=== PATIENT | male | born 1955 | race Caucasian/White ===

== ENCOUNTER → 2016-06-07 | Outpatient (REF) | payer BC ==
[~2016-06-07] MED LIST: /METO25TAB PO; ASPI81TA85 PO; BACIOIN20 TOP; BACITAB PO; BACT800T5 PO; CAPOTEN PO; CAPT125TA PO; CEPH500C PO; CLOP75TA2 PO; CRES5TAB PO; FERR325T PO; FERR325T3 PO; FURO40TA2 PO; GLIP5TAB2 PO; GLIP5TAB8 PO; KCL IV; KEFL500C7 PO; LASI40TA PO; LEVA500T PO; LEVO500T PO; LOPR1TAB6 PO; METO-346 PO; MICR10CA PO; MULT1TAB8 PO; MULTCAP PO; NITR4TASL SL; PERCOCET PO; PLAV75TA38 PO; POTA20TA PO; VITA-130 PO; VITA100037 PO; VITA500C24 PO; ZINC100T4 PO; ZYVO100T PO; crestor PO
[2016-06-07 12:21] LABS: ALBUMIN 3.8 GM/DL (3.2-5.2); ALBUMIN/GLOBULIN RATIO 1.36 (1.00-1.93); ALKALINE PHOSPHATASE 100 U/L (45-117); ALT/SGPT 26 U/L (12-78); ANION GAP 8 MEQ/L (8-16); AST/SGOT 19 U/L (15-37); BILIRUBIN,TOTAL 0.5 MG/DL (0.2-1.0); BLOOD UREA NITROGEN 30 MG/DL (7-18); CALCIUM LEVEL 8.7 MG/DL (8.8-10.2); CARBON DIOXIDE LEVEL 26 MEQ/L (21-32); CHLORIDE LEVEL 108 MEQ/L (98-107); CHOLESTEROL LEVEL 111 MG/DL (<200); CREATININE FOR GFR 1.14 MG/DL (0.70-1.30); GLOMERULAR FILTRATION RATE > 60.0 (>49); GLUCOSE, FASTING 72 MG/DL (80-110); POTASSIUM SERUM 4.3 MEQ/L (3.5-5.1); SODIUM LEVEL 142 MEQ/L (136-145); TOTAL PROTEIN 6.6 GM/DL (6.4-8.2); TRIGLYCERIDES LEVEL 132 MG/DL (<150)
== END ==
LOC: M SFHCPLAZ 08:27
PROVIDERS: ATTEND Family Medicine
DX: E11.9 Type 2 diabetes mellitus without complications (principal); E78.5 Hyperlipidemia, unspecified; I10 Essential (primary) hypertension

== ENCOUNTER 2016-06-24 21:24 | Emergency (ER) | payer OTHER, BC ==
[~2016-06-24] VITALS: Ht 172.7 cm; Wt 95.3 kg
[2016-06-24 21:25] VITALS: BP 161/82
[2016-06-24] MEDS ORDERED: METF500T PO (21:36)
== END 2016-06-24 23:19 | disposition home or self-care (01) ==
LOC: M ED 22:51
DX: S61.300A Unspecified open wound of right index finger with damage to nail, initial encounter (principal); W23.1XXA Caught, crushed, jammed, or pinched between stationary objects, initial encounter; Y92.89 Other specified places as the place of occurrence of the external cause; Y93.89 Activity, other specified; Y99.0 Civilian activity done for income or pay

== ENCOUNTER → 2016-09-13 | Outpatient (REF) | payer BC, OTHER ==
[~2016-09-13] MED LIST changes: +FERR1TAB8 PO; -FERR325T PO; +KEFL500C17 PO; -KEFL500C7 PO; +LEVA1TAB2 PO; -LEVA500T PO; +METF500T13 PO; +PLAV1TAB2 PO; -PLAV75TA38 PO; -VITA-130 PO; -VITA100037 PO; +VITA100067 PO; +VITA500T PO
== END ==
LOC: M LABDRAW1 11:49
PROVIDERS: ATTEND Student in an Organized Health Care Education/Training Program
DX: E11.9 Type 2 diabetes mellitus without complications (principal)

== ENCOUNTER → 2017-02-08 | Outpatient (REF) | payer BC ==
[2017-02-08 12:37] LABS: MALB URINE SIEMENS 26.1 MG/L; MAU/CREAT RATIO 19.3 MCG/MG (0.0-30.0)
[2017-02-08 12:52] LABS: ESTIMATED AVERAGE GLUCOSE 146 MG/DL (60-110); HEMOGLOBIN A1c 6.7 %
== END ==
LOC: M SFHCPLAZ 09:20
DX: E11.8 Type 2 diabetes mellitus with unspecified complications (principal)
CPT/HCPCS: 83036

== ENCOUNTER → 2017-10-27 | Outpatient (REF) | payer BC ==
[2017-10-27 16:01] LABS: BASO % 0.3 % (0.0-1.0); EOS # 0.1 10^3/uL (0.0-0.50); EOS % 2.1 % (0.0-3.0); HEMATOCRIT 36.4 % (42.0-52.0); IMMATURE GRANULOCYTE % 0.3 % (0-3.0); LYMPH # 0.8 10^3/uL (1.5-4.5); LYMPH % 13.7 % (24.0-44.0); MEAN CORPUSCULAR HEMOGLOBIN 31.5 pg (27.0-33.0); MEAN CORPUSCULAR VOLUME 95.5 fl (80.0-96.0); MONO # 0.3 10^3/uL (0.0-0.8); MONO % 5.6 % (0.0-5.0); NEUTROPHILS # 4.5 10^3/uL (1.8-7.7); PLATELET COUNT, AUTOMATED 164 10^3/uL (150-450); RED BLOOD COUNT 3.81 10^6/uL (4.30-6.10); RED CELL DISTRIBUTION WIDTH 12.9 % (11.5-14.5); WHITE BLOOD COUNT 5.8 10^3/uL (4.0-10.0)
[2017-10-27 16:26] LABS: ALBUMIN 3.8 GM/DL (3.2-5.2); ALBUMIN/GLOBULIN RATIO 1.41 (1.00-1.93); ALKALINE PHOSPHATASE 71 U/L (45-117); ALT/SGPT 27 U/L (12-78); ANION GAP 7 MEQ/L (8-16); AST/SGOT 19 U/L (7-37); BILIRUBIN,TOTAL 0.4 MG/DL (0.2-1.0); BLOOD UREA NITROGEN 33 MG/DL (7-18); CALCIUM LEVEL 8.5 MG/DL (8.8-10.2); CARBON DIOXIDE LEVEL 27 MEQ/L (21-32); CHLORIDE LEVEL 108 MEQ/L (98-107); CHOLESTEROL LEVEL 118 MG/DL (<200); CHOLESTEROL RISK RATIO 2.744 (<5); CREATININE FOR GFR 1.08 MG/DL (0.70-1.30); GLOMERULAR FILTRATION RATE > 60.0 (>49); GLUCOSE, FASTING 156 MG/DL (70-100); HDL CHOLESTEROL 43 MG/DL (>40); IRON (FE) 51 UG/DL (65-175); LDL CHOLESTEROL 59 MG/DL (<100); NON-HDL-C 75 MG/DL; POTASSIUM SERUM 4.9 MEQ/L (3.5-5.1); SODIUM LEVEL 142 MEQ/L (136-145); TOTAL PROTEIN 6.5 GM/DL (6.4-8.2); TRIGLYCERIDES LEVEL 81 MG/DL (<150)
[2017-10-27 16:31] LABS: ESTIMATED AVERAGE GLUCOSE 126 MG/DL (60-110)
== END ==
LOC: M LABDRAW1 10:43
DX: D64.9 Anemia, unspecified (principal); I10 Essential (primary) hypertension; D58.8 Other specified hereditary hemolytic anemias; E11.8 Type 2 diabetes mellitus with unspecified complications; E78.5 Hyperlipidemia, unspecified

== ENCOUNTER → 2018-05-11 | Outpatient (REF) | payer BC ==
[~2018-05-11] MED LIST changes: -/METO25TAB PO; +CAPT1TAB19 PO; +KLOR20TA42 PO; -LASI40TA PO; +LASI40TA9 PO; +METO1TAB87 PO; -ZYVO100T PO; +ZYVO1TAB PO
[2018-05-11 13:14] LABS: BASO # 0.1 10^3/uL (0.0-0.2); BASO % 1.2 % (0.0-1.0); EOS # 0.2 10^3/uL (0.0-0.50); EOS % 3.5 % (0.0-3.0); HEMATOCRIT 39.6 % (42.0-52.0); HEMOGLOBIN 12.8 g/dl (13.5-17.5); LYMPH # 0.9 10^3/uL (1.5-4.5); LYMPH % 15.8 % (24.0-44.0); MEAN CORPUSCULAR HEMOGLOBIN 31.1 pg (27.0-33.0); MEAN CORPUSCULAR HGB CONC 32.3 g/dl (32.0-36.5); MEAN CORPUSCULAR VOLUME 96.4 fl (80.0-96.0); MONO # 0.5 10^3/uL (0.0-0.8); MONO % 7.6 % (0.0-5.0); NEUTROPHILS # 4.3 10^3/uL (1.8-7.7); NEUTROPHILS % 71.7 % (36.0-66.0); PLATELET COUNT, AUTOMATED 171 10^3/uL (150-450); RED BLOOD COUNT 4.11 10^6/uL (4.30-6.10)
[2018-05-11 13:19] LABS: BLOOD UREA NITROGEN 40 MG/DL (7-18); CALCIUM LEVEL 8.5 MG/DL (8.8-10.2); CARBON DIOXIDE LEVEL 26 MEQ/L (21-32); CHLORIDE LEVEL 114 MEQ/L (98-107); CHOLESTEROL LEVEL 116 MG/DL (<200); CHOLESTEROL RISK RATIO 3.135 (<5); CREATININE FOR GFR 1.06 MG/DL (0.70-1.30); GLOMERULAR FILTRATION RATE > 60.0 (>49); GLUCOSE, FASTING 107 MG/DL (70-100); HDL CHOLESTEROL 37 MG/DL (>40); IRON (FE) 54 UG/DL (65-175); LDL CHOLESTEROL 54 MG/DL (<100); NON-HDL-C 79 MG/DL; POTASSIUM SERUM 4.9 MEQ/L (3.5-5.1); SODIUM LEVEL 145 MEQ/L (136-145); TRIGLYCERIDES LEVEL 126 MG/DL (<150)
[2018-05-11 13:45] LABS: HEMOGLOBIN A1c 6.1 %
[2018-05-11 13:57] LABS: MALB URINE SIEMENS 42.3 MG/L; MAU/CREAT RATIO 23.8 MCG/MG (0.0-30.0)
== END ==
LOC: M LABDRAW1 12:39
PROVIDERS: ATTEND Student in an Organized Health Care Education/Training Program
DX: E11.8 Type 2 diabetes mellitus with unspecified complications (principal); E78.5 Hyperlipidemia, unspecified; D64.9 Anemia, unspecified; I10 Essential (primary) hypertension; D50.8 Other iron deficiency anemias

== ENCOUNTER 2018-06-27 15:34 | Emergency (ER) | payer BC ==
[~2018-06-27] VITALS: Ht 172.7 cm; Wt 95.2 kg
[2018-06-27 17:28] LABS: BLOOD UREA NITROGEN 39 MG/DL (7-18); CALCIUM LEVEL 9.2 MG/DL (8.8-10.2); CARBON DIOXIDE LEVEL 26 MEQ/L (21-32); CHLORIDE LEVEL 112 MEQ/L (98-107); GLOMERULAR FILTRATION RATE > 60.0 (>49); GLUCOSE, FASTING 95 MG/DL (70-100); POTASSIUM SERUM 4.9 MEQ/L (3.5-5.1); SODIUM LEVEL 144 MEQ/L (136-145)
[2018-06-27] MEDS ORDERED: AUGM875T28 PO (17:33)
[2018-06-27 17:37] LABS: BASO % 0.7 % (0.0-1.0); EOS # 0.1 10^3/uL (0.0-0.50); EOS % 2.4 % (0.0-3.0); HEMATOCRIT 39.3 % (42.0-52.0); HEMOGLOBIN 13.3 g/dl (13.5-17.5); LYMPH % 16.6 % (24.0-44.0); MEAN CORPUSCULAR HEMOGLOBIN 32.4 pg (27.0-33.0); MEAN CORPUSCULAR HGB CONC 33.8 g/dl (32.0-36.5); MEAN CORPUSCULAR VOLUME 95.6 fl (80.0-96.0); MONO # 0.4 10^3/uL (0.0-0.8); MONO % 6.3 % (0.0-5.0); NEUTROPHILS # 4.4 10^3/uL (1.8-7.7); NEUTROPHILS % 73.7 % (36.0-66.0); PLATELET COUNT, AUTOMATED 181 10^3/uL (150-450); RED BLOOD COUNT 4.11 10^6/uL (4.30-6.10); WHITE BLOOD COUNT 5.9 10^3/uL (4.0-10.0)
[2018-06-27 17:50] LABS: C REACTIVE PROTEIN QUANTITATIV < 0.30 MG/DL (0.00-0.30)
[2018-06-27 18:03] LABS: ERYTHROCYTE SEDIMENTATION RATE 12 mm/hr (0-20)
[2018-06-27] MEDS ORDERED: NS 1,000 ML IV ONE (18:15)
[2018-06-27 20:00] VITALS: BP 158/86
== END 2018-06-27 20:05 | disposition home or self-care (01) ==
LOC: M ED 15:34
DX: S90.821A Blister (nonthermal), right foot, initial encounter (principal); X58.XXXA Exposure to other specified factors, initial encounter; Y92.89 Other specified places as the place of occurrence of the external cause; E11.40 Type 2 diabetes mellitus with diabetic neuropathy, unspecified; I10 Essential (primary) hypertension; I25.2 Old myocardial infarction; Z95.5 Presence of coronary angioplasty implant and graft; Z79.899 Other long term (current) drug therapy; Z79.82 Long term (current) use of aspirin; Z79.84 Long term (current) use of oral hypoglycemic drugs; Z88.8 Allergy status to other drugs, medicaments and biological substances

== ENCOUNTER → 2018-07-20 | Outpatient (CLI) | payer BC ==
[~2018-07-20] MED LIST changes: +AUGM875T28 PO; +METO37.5 PO
[2018-07-20 09:41] LABS: HEMATOCRIT 34.1 % (42.0-52.0); HEMOGLOBIN 11.4 g/dl (13.5-17.5); MEAN CORPUSCULAR HEMOGLOBIN 31.6 pg (27.0-33.0); MEAN CORPUSCULAR HGB CONC 33.4 g/dl (32.0-36.5); MEAN CORPUSCULAR VOLUME 94.5 fl (80.0-96.0); PLATELET COUNT, AUTOMATED 165 10^3/uL (150-450); RED BLOOD COUNT 3.61 10^6/uL (4.30-6.10); WHITE BLOOD COUNT 5.8 10^3/uL (4.0-10.0)
[2018-07-20 09:52] LABS: INR 1.07
[2018-07-20 10:03] LABS: ERYTHROCYTE SEDIMENTATION RATE 26 mm/hr (0-20)
[2018-07-20 10:16] LABS: ALBUMIN 3.7 GM/DL (3.2-5.2); ALT/SGPT 19 U/L (12-78); BILIRUBIN,TOTAL 0.5 MG/DL (0.2-1.0); BLOOD UREA NITROGEN 37 MG/DL (7-18); CALCIUM LEVEL 8.4 MG/DL (8.8-10.2); CARBON DIOXIDE LEVEL 25 MEQ/L (21-32); CHLORIDE LEVEL 113 MEQ/L (98-107); CREATININE FOR GFR 1.08 MG/DL (0.70-1.30); GLOMERULAR FILTRATION RATE > 60.0 (>49); GLUCOSE, FASTING 103 MG/DL (70-100); POTASSIUM SERUM 5.4 MEQ/L (3.5-5.1); SODIUM LEVEL 145 MEQ/L (136-145); TOTAL PROTEIN 6.4 GM/DL (6.4-8.2)
--- NOTE | 2018-07-20 10:42 | REP ---
CHEST X-RAY: Two views. HISTORY: Left knee arthritis. Preoperative testing. COMPARISON STUDY: April 15, 2013. FINDINGS: There is a coronary stent material in place in the distribution of the left coronary artery as before. The heart is not enlarged. The lungs are well inflated and clear. Pleural angles are sharp. Pulmonary vasculature is not increased. There are degenerative changes in the thoracic spine. IMPRESSION: Status post coronary artery stent placement. Otherwise no acute disease. Degenerative changes in the thoracic spine. Electronically Signed by Michael Harmon MD 07/20/2018 03:06 P
--- NOTE | 2018-07-21 00:29 | ECGEPIP ---
[facility] Test Date: 2018-07-20 Pat Name: BROCK DUBOIS Department: Room: - Gender: Male [employer]: : 1955 Requested By: Kika Brice PA-C Order Number: [id number] Reading MD: Estuardo Ardon Measurements Intervals [place] Rate: 73 P: 41 WA: 179 QRS: 19 QRSD: 166 T: 149 QT: 438 QTc: 485 Interpretive Statements SINUS RHYTHM LEFT BUNDLE BRANCH BLOCK tracing done 03-17-15 was normal QRS interval Electronically Signed on 07-21-2018 0:28:59 EDT by Estuardo Ardon
== END ==
LOC: M LAB 08:04
PROVIDERS: ATTEND Physician Assistant Surgical
DX: Z01.818 Encounter for other preprocedural examination (principal); E11.9 Type 2 diabetes mellitus without complications; I44.7 Left bundle-branch block, unspecified; M17.12 Unilateral primary osteoarthritis, left knee

== ENCOUNTER → 2018-07-27 | Outpatient (REF) | payer BC ==
[~2018-07-27] MED LIST changes: +VITAD1000T PO
[2018-07-27 13:33] LABS: ALBUMIN 4.1 GM/DL (3.2-5.2); MAGNESIUM LEVEL 1.8 MG/DL (1.8-2.4); POTASSIUM SERUM 4.7 MEQ/L (3.5-5.1)
[2018-07-27 13:48] LABS: TOTAL 25(OH) VITAMIN D 36.8 NG/ML (30.0-100.0)
[2018-07-27 13:49] LABS: PTH INTACT 52.2 PG/ML (18.5-88.0)
[2018-07-30 08:42] LABS: IONIZED CALCIUM 5.4 MG/DL (4.5-5.6)
== END ==
LOC: M LABDRAWP 11:59
PROVIDERS: ATTEND Student in an Organized Health Care Education/Training Program
DX: E83.51 Hypocalcemia (principal)

== ENCOUNTER 2018-08-02 08:55 | Inpatient (IN) | payer BC ==
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
[~2018-08-02] VITALS: Ht 172.7 cm; Wt 93.0 kg
[~2018-08-02 08:55] MED LIST changes: +LR 1,000 ML IV ONE; -VITAD1000T PO
[2018-08-02] MEDS ORDERED: BUPIVACAINE HCL 0.25% 30 ML VIAL As Ordered ONE (09:45)
[2018-08-02] MEDS ORDERED: VITAD1000T PO (09:59)
[2018-08-02] MEDS ORDERED: TRANEXAMIC ACID 100 MG/ML 10ML VIAL As Ordered ONE (10:25)
[2018-08-02] MEDS ORDERED: EPINEPHrine INJ 1 MG/ML 1ML AMP As Ordered ONE (10:25)
[2018-08-02] MEDS ORDERED: ceFAZolin 1GM INJ (J0690 PER 500MG) As Ordered ONE (10:25)
[2018-08-02] MEDS ORDERED: BUPIVACAINE LIPOSOME/PF 1.3% 20ML VIAL (13.3MG/ML)(EXPAREL)(C9290 PER1MG) As Ordered ONE (10:25)
[2018-08-02] MEDS ORDERED: BUPIVACAINE HCL 0.5% 30 ML VIAL As Ordered ONE (10:57)
[2018-08-02] MEDS ORDERED: PROPOFOL 200 MG/20 ML VIAL As Ordered ONE ×3 (10:59→13:35)
[2018-08-02] MEDS ORDERED: LIDOCAINE 2% INJ 100 MG/5 ML SDV (FOR ANES.) As Ordered ONE (11:02)
[2018-08-02] MEDS ORDERED: ONDANSETRON 4MG/2ML VIAL (J2405) As Ordered ONE (11:03)
[2018-08-02] MEDS ORDERED: dexameTHASONE 4 MG/ML 1ML VIAL (J1100) As Ordered ONE (11:03)
[2018-08-02] MEDS ORDERED: fentaNYL 100 MCG/2 ML INJECTION (J3010) As Ordered ONE (11:10)
[2018-08-02] MEDS ORDERED: MIDAZOLAM INJ 2 MG/2 ML VIAL (J2250) As Ordered ONE (11:10)
[2018-08-02] MEDS ORDERED: fentaNYL 100 MCG/2 ML INJECTION (J3010) IV ONE (11:45)
[2018-08-02] MEDS ORDERED: MIDAZOLAM INJ 2 MG/2 ML VIAL (J2250) IV ONE (11:45)
--- NOTE | 2018-08-02 11:56 | IPN ---
DATE: 08/02/2018 The patient seen and examined. He wished to go ahead with a left total knee arthroplasty. Preoperative clearance was obtained, and he understands the nature of procedure the risks of bleeding, infection, damage to nerves, vessels, persistent pain, wear loosening, blood clots, medical problems, among others, and we are planning on proceeding with a left knee arthroplasty.
[2018-08-02] MEDS ORDERED: KETAMINE HCL 200 MG/20 ML VIAL As Ordered ONE (12:36)
[2018-08-02] MEDS ORDERED: ePHEDrine SULFATE 25 MG/5 ML(5MG/ML) SYRINGE As Ordered ONE (13:43)
[2018-08-02] MEDS ORDERED: oxyCODONE 5MG TAB PO PRN (14:30)
[2018-08-02] MEDS ORDERED: FLEET ENEMA PR PRN (14:30)
[2018-08-02] MEDS ORDERED: fentaNYL 100 MCG/2 ML INJECTION (J3010) IV PRN (14:30)
[2018-08-02] MEDS ORDERED: METOCLOPRAMIDE INJ 10MG/2ML VIAL (J2765) IV PRN (14:30)
[2018-08-02] MEDS ORDERED: LR 1,000 ML IV SCH ×2 (14:30)
[2018-08-02] MEDS ORDERED: ONDANSETRON 4MG/2ML VIAL (J2405) IV PRN (14:30)
[2018-08-02] MEDS ORDERED: ACETAMINOPHEN TAB 650MG DOSE (2X325MG) PO PRN (14:30)
[2018-08-02] MEDS ORDERED: PROMETHAZINE INJ 25 MG/ML VIAL (J2550) IV PRN (14:30)
[2018-08-02] MEDS ORDERED: MORPHINE 4 MG/ML 1ML VIAL/SYRINGE (J2270) IV PRN ×2 (14:30)
--- NOTE | 2018-08-02 14:38 | REP ---
Clinical: Status post knee replacement. Technique AP and cross-table lateral views. Findings: The patient is status post left knee replacement with normal positioning and appearance to the femoral and tibial components. Overlying postsurgical changes appreciated. Impression: Status post left knee replacement. Electronically Signed by Wade Tijerina MD 08/02/2018 02:29 P
--- NOTE | 2018-08-02 14:48 | RO ---
DATE OF PROCEDURE: 08/02/2018 PREOPERATIVE DIAGNOSIS: Left knee osteoarthritis. POSTOPERATIVE DIAGNOSIS: Left knee osteoarthritis. PROCEDURE: Left total knee arthroplasty using an Attune rotating platform posterior stabilized size 6 femur, size 6 tibia, 12 polyethylene, 35 patellar button. SURGEON: Piter Espinal MD NURSING STAFF DEVELOPMENT COORDINATOR: ISATU Starr ANESTHESIA: Spinal. ESTIMATED BLOOD LOSS: 150. COMPLICATIONS: None. INDICATIONS: This is a 62-year-old gentleman with multiple medical issues who had gradually worsening knee pain and wished to go ahead with a knee replacement. He understood the nature of the procedure, the risks of bleeding, infection, damage to nerves, vessels, persistent pain, wear loosening, blood clots, medical problems, , among others. It was known that he had some preoperative cardiac issues and neuropathy and some calcification of his vessels. DESCRIPTION OF PROCEDURE: The patient was taken to the operating room and placed supine position after spinal anesthesia was induced. The left lower extremity was prepped and draped in usual sterile fashion. Time-out was performed. Tourniquet was inflated, and a longitudinal incision was made over the anterior aspect the knee. It was evident that he had a fair amount of bleeding and I felt that it was pretty important to try to get this under control in order to provide good cement technique. We did eventually raise the tourniquet up to 300, which helped control the bleeding and we used cautery. We did a medial parapatellar arthrotomy per routine, everted the patella, flexed the knee up, used a canal initiating reamer on the femoral side set at 5 degrees of valgus, 9 mm cut. We removed some large osteophytes first. We pinned the distal cutting block in place and the distal femoral cut was made protecting soft tissues. I sized the femur to be a 6. The drill holes were placed in the end of the femur and the 4-in-1 cutting block size 6 was applied and the remaining cuts were made. I then prepared the tibia. The tibial alignment guide was placed. I took about 2 mm off the low side, which is about 10 off the high side and excellent resection was noted. The remnant of the posterior cruciate ligament (PCL) was removed. I removed osteophytes and soft tissue from either side of the knee and then used spacer blocks, and tentatively decided on size 12 as far as thickness of polyethylene. We then prepared the box cut with the box cutting guide. The remaining three cuts were made. The tibia was sized to be a 6. The drill hole and broach were used. I then placed the trial components and was very pleased with a size 12 polyethylene, size 6 femur and tibia. The knee had excellent stability and range of motion. I then freehand cut the patella removing about 7 mm of bone and sized to be a 35 the drill holes were placed and the drill holes were placed the end of the femur. I then put the knee through range of motion. The patella tracked quite nicely. The assisted living assistant prepared the bone cement in the modern technique. There was a little bit of oozing from the bony surfaces. I actually put tranexamic acid (TXA) solution on the bony surfaces to try to see reduce this. I had first irrigated copiously, then we dried very carefully and then cemented on the tibial tray, cemented on the femoral component, removed excess bone cement and placed the polyethylene, reduced it and brought the knee out in extension, cemented on the patella. Overall the bony surfaces were quite dry when we cemented. The knee was held on extension while the cement hardened and we irrigated copiously as we had multiple times prior to this. I placed the Exparel in the deep tissues and closed the deep layer with interrupted #1 Vicryl suture, followed by running Stratafix suture. Irrigated the subcu, closed with #2-0 Vicryl and the skin with kaushal. Sterile dressing was applied. Tourniquet had been deflated prior to wound closure after the cement hardened. Postoperatively, he had good capillary refill and in recovery room had palpable pulses. The assisted living assistant was instrumental in holding retractors and assisting in mixing the bone cement and assisting in making one of bone cuts and in wound closure.
[2018-08-02 15:25] VITALS: BP 136/78
[2018-08-02] MEDS ORDERED: GLUCOSE 4 GM CHEW TABLET PO PRN (16:15)
[2018-08-02] MEDS ORDERED: DEXTROSE 50% 50 ML SYRINGE IV PRN (16:15)
[2018-08-02] MEDS ORDERED: GLUCAGON FOR INJ 1 MG VIAL (J1610) SC PRN (16:15)
--- NOTE | 2018-08-02 16:29 | CR.PDOC ---
General Date of Consultation: Aug 02, 2018 Consultation REASON FOR CONSULTATION/CHIEF COMPLAINT: . Management of medical comorbidities HISTORY OF PRESENT ILLNESS: . 62-year-old male with past medical history of diabetes mellitus, hypertension, coronary artery disease/MA in 2011 s/p Stent x 2, and iron deficiency anemia was admitted under the orthopedic surgery service for elective left knee arthroplasty. At this time, the hospitalist service has been consulted to manage the patient's medical comorbid. The patient denies any acute complaints of fevers, chills, chest pain, palpitations, abdominal pain, or any nausea/vomiting/diarrhea. ALLERGIES: Please see below. HOME MEDICATIONS: Please see below. PAST MEDICAL HISTORY: As noted in HPI. PAST SURGICAL HISTORY: Cardiac catheterization with stenting in 2012, bone biopsy of left foot, right hand surgery FAMILY HISTORY: Noncontributory SOCIAL HISTORY: Denies alcohol, tobacco, or illicit drug use. REVIEW OF SYSTEMS: 10 point review of systems negative unless otherwise specified in HPI. PHYSICAL EXAMINATION: VITAL SIGNS: Please see below. GENERAL APPEARANCE: . Awake, alert, in no acute distress HEENT: . Normocephalic, atraumatic RESPIRATORY: . Clear to auscultation bilaterally CARDIOVASCULAR: . Normal rate, normal S1, S2 ABDOMEN: . Soft, nontender, nondistended EXTREMITIES: . Range of motion limited of the left knee due to recent surgical intervention. Surgical dressing noted over the joint. Neurovascularly intact distally. LABORATORY DATA: Please see below. ASSESSMENT/PLAN: s/p Left Total Knee Arthroplasty Management as per Orthopedic Service Diabetes Mellitus ISS ordered HTN We will cont Catapril in the AM if Serum Cr at baseline Hx of CAD, [place] s/p Stenting x 2 in 2011 Hold ASA 2/2 Xarelto Cont Metoprolol, Statin Iron Deficiency Anemia Cont supplementation DVT Prophylaxis on Xarelto as per Orthopedic Surgery Vital Signs/I&O Vital Signs Date Time Temp Pulse Resp B/P (MAP) Pulse Ox O2 Delivery O2 Flow Rate FiO2 08/02/18 15:00 97.5 87 18 132/75 (94) 96 Laboratory Data CBC/BMP Laboratory Tests 08/02/18 09:07 Allergies Coded Allergies: atorvastatin (Verified Allergy, Unknown, rash, 08/02/18) Home Medications Scheduled Ascorbic Acid (Vitamin C) 500 Mg Tab, 500 MG PO BID, #60 Aspirin (Aspir 81) 81 Mg Tab, 81 MG PO DAILY, (Reported) Captopril (Captopril) 12.5 Mg Tab, 12.5 MG PO BID, (Reported) Ferrous Sulfate (Ferrous Sulfate) 325 Mg Tab, 325 MG PO BID, (Reported) Glipizide (Glipizide) 5 Mg Tab, 5 MG PO DAILY, (Reported) Metformin HCl (Metformin HCl) 500 Mg Tab, 500 MG PO DAILY, (Reported) Metformin HCl (Metformin HCl) 500 Mg Tablet, 1,000 MG PO QHS, (Reported) Metoprolol Tartrate (Metoprolol Tartrate) 37.5 Mg Tablet, 12.5 MG PO BID, (Reported) Multivitamin (Multi-Vitamin Daily) 1 Tab Tab, 1 TAB PO DAILY, (Reported) Potassium Chloride (Klor-Con M20) 20 Meq Tabcr, 20 MEQ PO QHS, (Reported) Rosuvastatin Calcium (Crestor) 5 Mg Tab, 5 MG PO DAILY, (Reported) Vitamin D (Vitamin D3) 1,000 Unit Tablet, 1,000 UNITS PO DAILY, (Reported) TRACY ROSS MD Aug 02, 2018 16:29
[2018-08-02 16:32] VITALS: BP 121/75
[2018-08-02 17:30] VITALS: BP 134/75
[2018-08-02] MEDS: HumaLOG INSULIN (NovoLOG) PER UNIT SC SCH ×2 (18:22→21:16)
[2018-08-02 18:30] VITALS: BP 92/68
[2018-08-02 20:00] VITALS: BP 133/88
[2018-08-02] MEDS: METOPROLOL TART 12.5 MG PER 1/2 TAB PO SCH (21:11)
[2018-08-02] MEDS: FERROUS SULFATE 325MG TAB PO SCH (21:11)
[2018-08-02] MEDS: ROSUVASTATIN 10 MG TAB (CRESTOR) PO SCH (21:13)
[2018-08-02] MEDS: ASCORBIC ACID 500 MG TAB PO SCH (21:13)
[2018-08-02 22:00] VITALS: BP 130/88
[2018-08-02] MEDS: PERCOCET 5MG/325MG TAB PO PRN (23:03)
[2018-08-03] MEDS: PERCOCET 5MG/325MG TAB PO PRN ×4 (05:25→23:58)
[2018-08-03 06:00] VITALS: BP 130/81
[2018-08-03] MEDS ORDERED: PERCOCET 5MG/325MG TAB PO PRN (06:15)
[2018-08-03 06:18] LABS: HEMATOCRIT 25.5 % (42.0-52.0); HEMOGLOBIN 8.9 g/dl (13.5-17.5); MEAN CORPUSCULAR HEMOGLOBIN 31.1 pg (27.0-33.0); MEAN CORPUSCULAR HGB CONC 34.9 g/dl (32.0-36.5); MEAN CORPUSCULAR VOLUME 89.2 fl (80.0-96.0); PLATELET COUNT, AUTOMATED 158 10^3/uL (150-450); RED BLOOD COUNT 2.86 10^6/uL (4.30-6.10); WHITE BLOOD COUNT 10.4 10^3/uL (4.0-10.0)
[2018-08-03 06:38] LABS: BLOOD UREA NITROGEN 34 MG/DL (7-18); CALCIUM LEVEL 8.2 MG/DL (8.8-10.2); CARBON DIOXIDE LEVEL 25 MEQ/L (21-32); CHLORIDE LEVEL 105 MEQ/L (98-107); CREATININE FOR GFR 1.21 MG/DL (0.70-1.30); GLOMERULAR FILTRATION RATE > 60.0 (>49); GLUCOSE, FASTING 210 MG/DL (70-100); POTASSIUM SERUM 4.7 MEQ/L (3.5-5.1); SODIUM LEVEL 138 MEQ/L (136-145)
[2018-08-03] MEDS: MOM 30ML SUSPENSION UDC PO SCH (08:11)
[2018-08-03] MEDS: HumaLOG INSULIN (NovoLOG) PER UNIT SC SCH ×4 (08:11→22:06)
[2018-08-03] MEDS: METOPROLOL TART 12.5 MG PER 1/2 TAB PO SCH ×2 (08:11→22:07)
[2018-08-03] MEDS: ASCORBIC ACID 500 MG TAB PO SCH ×2 (08:12→22:13)
[2018-08-03] MEDS: FERROUS SULFATE 325MG TAB PO SCH ×2 (08:12→22:07)
[2018-08-03] MEDS: MIRALAX *UNIT DOSE* 17GM PACKET PO SCH (08:13)
--- NOTE | 2018-08-03 08:22 | IPN ---
DATE: 08/03/2018 CHIEF COMPLAINT: Postoperative day #1 left total knee arthroplasty. HISTORY OF PRESENT ILLNESS: This is a 62-year-old man who underwent a left total knee arthroplasty yesterday by Dr. Espinal. This was uncomplicated. Seen today in postoperative followup. The only concern is a little bit of difficulty voiding. He was being seen by Dr. Mckeon, the director [place] this morning. He has been able to void, but with some difficulty. PHYSICAL EXAMINATION: Well-appearing, 62-year-old man. He appears comfortable. He is sitting up in bed. Appears alert and oriented times three. He responds appropriately. Vital Signs: Temperature 97.8. Blood pressure 130/81. Pulse rate 92. Respiratory rate 17. 97% on room air. Examination of the lower extremities reveals a bulky dressing over the incision on his left knee. His foot is warm and well-perfused with good pedal pulses. He can wiggle his toes, dorsiflex and plantar flex the foot. Abdomen: Soft. LABORATORY EXAMINATION: Reveals hemoglobin 8.9, no preoperative hemoglobin recorded in the computer system. ASSESSMENT: 62-year-old man with difficulty voiding, it could be from surgery in general, the spinal anesthetic or preexisting BPH. Regardless, we will do bladder scans and straight catheters throughout the day. Will keep an eye on this to see how it progresses. He will be weightbearing as tolerated. Mobilize with the physical therapist. He is on rivaroxaban 10 mg by mouth once daily venous thromboembolism (VTE) prophylaxis. DISPOSITION: I expect him to be discharged home within the next 1-3 days.
[2018-08-03 10:00] VITALS: BP 112/75
[2018-08-03] MEDS: TAMSULOSIN 0.4 MG CAP PO SCH (12:48)
[2018-08-03 14:00] VITALS: BP 112/74
--- NOTE | 2018-08-03 15:12 | IPNPDOC ---
Subjective Date Seen The patient was seen on 08/03/18. Subjective Chief Complaint/HPI Patient seen and examined at the bedside. Noted to have urinary retention following procedure yesterday requiring straight catheterization. Denies any burning on urination, flank pain, or fever/chills. Objective Physical Examination General Exam: Positive: Alert, Cooperative, No Acute Distress ENT Exam: Positive: Atraumatic, Mucous membr. moist/pink Neck Exam: Negative: JVD Chest Exam: Positive: Clear to auscultation, Normal air movement Heart Exam: Positive: Rate Normal, Normal S1, Normal S2 Abdomen Exam: Positive: Soft; Negative: Tenderness Extremity Exam: Positive: Other (left knee with limited range of motion secondary to recent surgical intervention. Extremity neurovascularly intact distally.) Psych Exam: Positive: Oriented x 3 Assessment /Plan Plan/VTE VTE Prophylaxis Ordered?: Yes Plan s/p Left Total Knee Arthroplasty Management as per Orthopedic Service Urinary Retention likely 2/2 Anesthesia during Surgery Patient with no known history of problems with BPH in the past Continue straight catheterization with serial bladder scan's to check for retention Patient encouraged to sit up in the chair and ambulate Flomax ordered We will cont to monitor Diabetes Mellitus ISS Hx of CAD, [place] s/p Stenting x 2 in 2012 Hold ASA 2/2 Xarelto Cont Metoprolol, Statin Iron Deficiency Anemia Cont supplementation DVT Prophylaxis on Xarelto as per Orthopedic Surgery VS, I&O, 24H, Fishbone Vital Signs/I&O Vital Signs Date Time Temp Pulse Resp B/P (MAP) Pulse Ox O2 Delivery O2 Flow Rate FiO2 08/03/18 14:30 16 08/03/18 10:00 98.2 87 112/75 (87) 95 I&O- Last 24 Hours up to 6 AM 08/03/18 06:00 Intake Total 2700 ml Output Total 2200 ml Balance 500 ml Laboratory Data 24H LABS Laboratory Tests 2 08/02/18 17:15: Bedside Glucose (Misc Panel) 274H 08/02/18 20:22: Bedside Glucose (Misc Panel) 320H 08/03/18 06:02: Nucleated Red Blood Cells % (auto) 0.0, Anion Gap 8, Glomerular Filtration Rate > 60.0, Blood Urea Nitrogen 34H, Creatinine 1.21, Sodium Level 138, Potassium Level 4.7, Chloride Level 105, Carbon Dioxide Level 25, Calcium Level 8.2L 08/03/18 11:30: Bedside Glucose (Misc Panel) 193H CBC/BMP Laboratory Tests 08/03/18 06:02 Red Blood Count 2.86 L, Mean Corpuscular Volume 89.2, Mean Corpuscular Hemoglobin 31.1, Mean Corpuscular Hemoglobin Concent 34.9, Red Cell Distribution Width 12.9, Calcium Level 8.2 L TRACY ROSS MD Aug 03, 2018 15:12
[2018-08-03 18:00] VITALS: BP 141/79
[2018-08-03] MEDS ORDERED: RIVAROXABAN 10 MG TAB (XARELTO) PO SCH (18:00)
[2018-08-03 22:00] VITALS: BP 115/74
[2018-08-03] MEDS: ROSUVASTATIN 10 MG TAB (CRESTOR) PO SCH (22:07)
[2018-08-04 06:00] VITALS: BP 116/67
[2018-08-04] MEDS: FERROUS SULFATE 325MG TAB PO SCH (07:59)
[2018-08-04] MEDS: TAMSULOSIN 0.4 MG CAP PO SCH (07:59)
[2018-08-04] MEDS: ASCORBIC ACID 500 MG TAB PO SCH (07:59)
[2018-08-04 08:00] VITALS: BP 113/68
[2018-08-04] MEDS: MIRALAX *UNIT DOSE* 17GM PACKET PO SCH (08:00)
[2018-08-04] MEDS ORDERED: XARE10TA PO (08:00)
[2018-08-04] MEDS: MOM 30ML SUSPENSION UDC PO SCH (08:00)
[2018-08-04] MEDS: METOPROLOL TART 12.5 MG PER 1/2 TAB PO SCH (08:00)
[2018-08-04] MEDS ORDERED: PERC5TAB12 PO (08:00)
[2018-08-04] MEDS ORDERED: FLOM0.4C39 PO (08:00)
[2018-08-04] MEDS: HumaLOG INSULIN (NovoLOG) PER UNIT SC SCH (08:31)
--- NOTE | 2018-08-04 13:35 | IPNPDOC ---
Subjective Date Seen The patient was seen on 08/04/18. Subjective Chief Complaint/HPI Patient seen and examined at the bedside. Reports that his urinary retention has resolved. States that he is urinating without any difficulty at this time. Objective Physical Examination General Exam: Positive: Alert, Cooperative, No Acute Distress ENT Exam: Positive: Atraumatic, Mucous membr. moist/pink Neck Exam: Negative: JVD Chest Exam: Positive: Clear to auscultation, Normal air movement Heart Exam: Positive: Rate Normal, Normal S1, Normal S2 Abdomen Exam: Positive: Soft; Negative: Tenderness Extremity Exam: Positive: Other (left knee with limited range of motion secondary to recent surgical intervention. Extremity neurovascularly intact distally.) Psych Exam: Positive: Oriented x 3 Assessment /Plan Plan/VTE VTE Prophylaxis Ordered?: Yes Plan s/p Left Total Knee Arthroplasty Management as per Orthopedic Service Urinary Retention likely 2/2 Anesthesia during Surgery, resolved Cont Flomax Diabetes Mellitus ISS Hx of CAD, [place] s/p Stenting x 2 in 2012 Hold ASA 2/2 Xarelto Cont Metoprolol, Statin Iron Deficiency Anemia Cont supplementation DVT Prophylaxis on Xarelto as per Orthopedic Surgery VS, I&O, 24H, Fishbone Vital Signs/I&O Vital Signs Date Time Temp Pulse Resp B/P (MAP) Pulse Ox O2 Delivery O2 Flow Rate FiO2 08/04/18 10:25 97.1 99 20 92 08/04/18 08:00 113/68 I&O- Last 24 Hours up to 6 AM 08/04/18 06:00 Intake Total 1620 ml Output Total 2450 ml Balance -830 ml Laboratory Data 24H LABS Laboratory Tests 2 08/03/18 16:41: Bedside Glucose (Misc Panel) 245H 08/03/18 17:23: Urine Color YELLOW, Urine Appearance CLEAR, Urine pH 5.0, Urine Specific [place] 1.018, Urine Protein NEGATIVE, Urine Glucose (UA) NEGATIVE, Urine Ketones NEGATIVE, Urine Blood NEGATIVE, Urine Nitrite NEGATIVE, Urine Bilirubin NEGATIVE, Urine Urobilinogen 0.2, Urine Leukocyte Esterase NEGATIVE, Urine WBC (Auto) 1, Urine RBC (Auto) 3, Urine Hyaline Casts (Auto) 0, Urine Bacteria (Auto) NEGATIVE, Urine Squamous Epithelial Cells 0, Urine Mucus (Auto) SMALL, Urine Sperm (Auto) 08/03/18 21:02: Bedside Glucose (Misc Panel) 254H 08/04/18 03:39: Bedside Glucose (Misc Panel) 250H 08/04/18 06:31: Bedside Glucose (Misc Panel) 272H TRACY ROSS MD Aug 04, 2018 13:35
--- NOTE | 2018-08-06 13:47 | DSES ---
DATE OF ADMISSION: 08/02/2018 DATE OF DISCHARGE: 08/04/2018 ADMISSION DIAGNOSIS: Osteoarthritis left knee. OTHER DIAGNOSES: Include: Diabetes. Hypertension. Coronary artery disease status post myocardial infarction ([place]). Iron deficiency anemia. DISCHARGE DIAGNOSIS: Osteoarthritis left knee status post left total knee arthroplasty. OPERATION PERFORMED Left total knee arthroplasty. HISTORY This is a pleasant 62-year-old male patient with progressively worsening left knee pain and stiffness. She failed to improve with conservative management. He was admitted for elective knee replacement on the left side. HOSPITAL COURSE: The patient was admitted on day of surgery, underwent a left total knee arthroplasty which was uneventful. During the postoperative period he did have some difficulties with urinary retention. He was treated with frequent bladder scans and straight catheterizations. Ultimately after one day of treatment his symptoms resolved and his urinary retention resolved. It was thought this was secondary to his anesthesia. On the day of discharge he was doing well, weightbearing as tolerated on his left lower extremity. He will move his left knee to prevent stiffness. He will use thromboembolic deterrent stockings (TEDS) stockings for 30 days postoperatively for deep vein thrombosis (DVT) prophylaxis. He will also use Xarelto 10 mg for DVT prophylaxis per their protocol. He will follow-up in our office in 10-14 days for surgical follow-up. He was given instructions to include but not limited to wound monitoring activity limitations. He will read resume his preoperative medications and diet. He will use oral pain medications for pain control. Please refer to the medical record further details.
== END 2018-08-04 11:45 | disposition home or self-care (01) | DRG 302 ==
LOC: M OR 08:55 → M MS5PR 15:15
PROVIDERS: ADMIT Orthopaedic Surgery; ATTEND Orthopaedic Surgery
PROC: 0SRD0J9 Replacement of Left Knee Joint with Synthetic Substitute, Cemented, Open Approach (ICD-10-PCS; principal; 2018-08-02 11:55)
DX: M17.12 Unilateral primary osteoarthritis, left knee (principal); E11.621 Type 2 diabetes mellitus with foot ulcer; L97.419 Non-pressure chronic ulcer of right heel and midfoot with unspecified severity; I10 Essential (primary) hypertension; D50.9 Iron deficiency anemia, unspecified; E78.5 Hyperlipidemia, unspecified; I25.2 Old myocardial infarction; R33.9 Retention of urine, unspecified; M51.34 Other intervertebral disc degeneration, thoracic region; I25.10 Atherosclerotic heart disease of native coronary artery without angina pectoris; Z88.8 Allergy status to other drugs, medicaments and biological substances; Z95.5 Presence of coronary angioplasty implant and graft; Z79.82 Long term (current) use of aspirin; Z79.84 Long term (current) use of oral hypoglycemic drugs; Z79.899 Other long term (current) drug therapy

== ENCOUNTER 2018-08-06 09:14 | Observation (INO) | payer BC ==
[~2018-08-06] VITALS: Ht 172.7 cm; Wt 91.4 kg
[~2018-08-06 09:14] MED LIST changes: +FLOM0.4C39 PO; -LR 1,000 ML IV ONE; +PERC5TAB12 PO; +VITAD1000T PO; +XARE10TA PO
--- NOTE | 2018-08-06 10:51 | REP ---
Clinical: Constipation. Technique: Two supine views of the abdomen and pelvis. Findings: Bowel gas pattern is nonspecific. No significant fecal stasis suggested. No organomegaly. No abnormal calcifications. Atherosclerotic disease with vascular calcifications noted in the pelvis. Skeletal structures intact. Impression: 1. Nonspecific bowel gas pattern. 2. Atherosclerotic disease Electronically Signed by Wade Tijerina MD 08/06/2018 10:43 A
[2018-08-06] MEDS ORDERED: NS 1,000 ML IV ONE (12:30)
[2018-08-06 13:34] LABS: EOS % 0.1 % (0.0-3.0); HEMATOCRIT 21.7 % (42.0-52.0); HEMOGLOBIN 7.4 g/dl (13.5-17.5); LYMPH # 0.7 10^3/uL (1.5-4.5); LYMPH % 6.8 % (24.0-44.0); MEAN CORPUSCULAR HEMOGLOBIN 31.8 pg (27.0-33.0); MEAN CORPUSCULAR HGB CONC 34.1 g/dl (32.0-36.5); MEAN CORPUSCULAR VOLUME 93.1 fl (80.0-96.0); MONO # 0.4 10^3/uL (0.0-0.8); MONO % 4.3 % (0.0-5.0); NEUTROPHILS # 8.4 10^3/uL (1.8-7.7); NEUTROPHILS % 88.1 % (36.0-66.0); PLATELET COUNT, AUTOMATED 155 10^3/uL (150-450); RED BLOOD COUNT 2.33 10^6/uL (4.30-6.10); WHITE BLOOD COUNT 9.6 10^3/uL (4.0-10.0)
[2018-08-06 14:11] LABS: APPEARANCE, URINE HAZY (CLEAR); BACTERIA, URINE AUTO NEGATIVE (NEGATIVE); BILIRUBIN, URINE AUTO NEGATIVE (NEGATIVE); BLOOD, URINE BLOOD NEGATIVE (NEGATIVE); COLOR, URINE YELLOW (YELLOW); GLUCOSE, URINE (UA) AUTO NEGATIVE (NEGATIVE); KETONE, URINE AUTO NEGATIVE (NEGATIVE); LEUKOCYTE ESTERASE, URINE AUTO NEGATIVE (NEGATIVE); MUCUS, URINE SMALL (NEGATIVE); NITRITE, URINE AUTO NEGATIVE (NEGATIVE); PROTEIN, URINE AUTO NEGATIVE (NEGATIVE); RBC, URINE AUTO 0 /HPF (0-3); SPECIFIC GRAVITY URINE AUTO 1.015 (1.002-1.035); SQUAMOUS EPITHELIAL CELL UR AU 0 /HPF (0-6); UROBILINOGEN, URINE AUTO 0.2 mg/dL (0.0-2.0); WBC, URINE AUTO 0 /HPF (0-3)
[2018-08-06] MEDS ORDERED: PATIROMER SORBITEX CALCIUM 8.4 GM POWDER PACKET (VELTASSA) PO ONE (14:45)
[2018-08-06] MEDS ORDERED: OXYC1TAB23 PO (15:20)
[2018-08-06] MEDS ORDERED: ASPI81TA85 PO (15:20)
[2018-08-06] MEDS ORDERED: ASCO500T PO (15:20)
[2018-08-06] MEDS ORDERED: FLOM0.4C39 PO (15:20)
[2018-08-06] MEDS ORDERED: FURO40TA2 PO (15:20)
[2018-08-06] MEDS ORDERED: XARE10TA PO (15:20)
[2018-08-06] MEDS ORDERED: METO25TA4 PO (15:20)
[2018-08-06] MEDS ORDERED: ACET500T15 PO (15:20)
[2018-08-06] MEDS ORDERED: MAALOX 30 ML SUSP *UDC PO PRN (15:45)
[2018-08-06] MEDS ORDERED: GLUCOSE 4 GM CHEW TABLET PO PRN (15:45)
[2018-08-06] MEDS ORDERED: ACETAMINOPHEN 500 MG TAB PO PRN (15:45)
[2018-08-06] MEDS ORDERED: PERCOCET 5MG/325MG TAB PO PRN (15:45)
[2018-08-06] MEDS ORDERED: DEXTROSE 50% 50 ML SYRINGE IV PRN (15:45)
[2018-08-06] MEDS ORDERED: ACETAMINOPHEN TAB 650MG DOSE (2X325MG) PO PRN (15:45)
[2018-08-06] MEDS ORDERED: MOM 30ML SUSPENSION UDC PO PRN (15:45)
[2018-08-06] MEDS ORDERED: GLUCAGON FOR INJ 1 MG VIAL (J1610) SC PRN (15:45)
[2018-08-06] MEDS ORDERED: METHYLNALTREXONE BROMIDE 12 MG/0.6 ML VIAL (RELISTOR) SC ONE (15:45)
[2018-08-06] MEDS ORDERED: PILL CUTTER 1 EACH XX PRN (16:00)
--- NOTE | 2018-08-06 16:10 | HPEPDOC ---
General Date of Admission 08/06/18 Date of Service: Aug 06, 2018 Attending Physician: DARBY SOTO MD Chief Complaint The patient is a 62-year-old male admitted with a reason for visit of not feeling well. Source: Patient Exam Limitations: No limitations Timing/Duration: Day(s) (4 days) Severity: Moderate Associated Symptoms: Loss of appetite (loss of appetite), Malaise History of Present Illness 62 years old white male with past medical history of hypertension, diabetes, hyperlipidemia, recently had a total left knee replacement done about 4 days ago. He came in with chief complaints of generalized not feeling good, tired, fatigue, malaise constipated, and generalized lethargy. Patient denies chest pain, shortness of breath, nausea, vomiting or abdominal pain.. On further interview, patient was found to have a hemoglobin of 7.4. And his creatinine was 2.0 and hence we will called in to admit patient for observation for dehydration and anemia. Home Medications Scheduled Ascorbic Acid (Ascorbic Acid) 500 Mg Tablet, 500 MG PO BID, (Reported) Aspirin (Aspir 81) 81 Mg Tablet.dr, 81 MG PO DAILY, (Reported) ON HOLD DUE TO SURGERY ON 08/02/18 Captopril (Captopril) 12.5 Mg Tab, 12.5 MG PO BID, (Reported) Ferrous Sulfate (Ferrous Sulfate) 325 Mg Tab, 325 MG PO BID, (Reported) Furosemide (Furosemide) 40 Mg Tablet, 40 MG PO DAILY, (Reported) Glipizide (Glipizide) 5 Mg Tab, 5 MG PO DAILY, (Reported) Metformin HCl (Metformin HCl) 500 Mg Tab, 500 MG PO DAILY, (Reported) Metformin HCl (Metformin HCl) 500 Mg Tablet, 1,000 MG PO QHS, (Reported) Metoprolol Tartrate (Metoprolol Tartrate) 25 Mg Tablet, 12.5 MG PO BID, (Reported) Multivitamin (Multi-Vitamin Daily) 1 Tab Tab, 1 TAB PO DAILY, (Reported) Potassium Chloride (Klor-Con M20) 20 Meq Tabcr, 20 MEQ PO QHS, (Reported) Rivaroxaban (Xarelto) 10 Mg Tablet, 10 MG PO DAILY, (Reported) ON FOR 11 DAYS FOR DVT PROPHYLAXIS, STARTED 08/04 Rosuvastatin Calcium (Crestor) 5 Mg Tab, 5 MG PO DAILY, (Reported) Tamsulosin HCl (Flomax) 0.4 Mg Capsule, 0.4 MG PO DAILY, (Reported) Vitamin D (Vitamin D3) 1,000 Unit Tablet, 1,000 UNITS PO DAILY, (Reported) Scheduled PRN Acetaminophen (Acetaminophen) 500 Mg Tablet, 1,000 MG PO Q6H PRN for PAIN, (Reported) Oxycodone HCl/Acetaminophen (Oxycodone-Acetaminophen 5-325) 1 Each Tablet, 1 TAB PO Q4H PRN for PAIN, (Reported) Allergies Coded Allergies: atorvastatin (Verified Allergy, Unknown, rash, 08/02/18) Past Medical History Medical History Diabetes, hypertension, hyperlipidemia, degenerative joint disease Surgical History Status post left total knee replacement. POD #4 Family History Significant Family History: No pertinent family hx Social History * Smoker: Denies Alcohol: Denies Drugs: denies A-FIB/CHADSVASC A-FIB History Current/History of A-Fib/PAF?: No Review of Systems Constitutional: Reports: Malaise, Weakness, Fatigue, Weight Loss Eyes: Denies: Pain, Vision change, Conjunctivae inflammation, Eyelid inflammation, Redness, Other ENT: Denies: Head Aches, Ear Pain, Dysphagia, Sinus Congestion, Post Nasal Drip, Sore Throat, Epistaxis, Other Symptoms Skin: Denies: Rash, Lesions, Jaundice, Bruising, Itching, Dry, Breakdown, Nail Changes, Other Pulmonary: Denies: Dyspnea, Cough, Pleuritic Chest Pain, Other Symptoms Cardiovascular: Denies: Chest Pain, Palpitations, Orthopnea, Paroxysmal Noc. Dyspnea, Edema, Lt Headedness, Other Symptoms Gastrointestinal: Reports: Constipation Genitourinary: Denies: Dysuria, Frequency, Incontinence, Hematuria, Retention, Other Symptoms Hematologic: Denies: Bruising, Bleeding Excessively, Petecchia, Purpura, Enlarged Lymph Nodes, Other Hematologic Endocrine: Denies: Polydipsia, Polyphagia, Polyuria, Heat Intolerance, Cold Intolerance, Other Endocrine Sx Musculoskeletal: Reports: Other Symptoms (. Left knee pain) Neurological: Denies: Weakness, Numbness, Incoordination, Change in speech, Con fusion, Seizures, Other Symptoms Psych: Denies: Mood Normal, Anxiety, Depression, Memory Issues, Thoughts of Self Harm, Anger, Thoughts of Harming Other, Other Psych Physical Examination General Exam: Positive: Alert, Cooperative Eye Exam: Positive: PERRLA ENT Exam: Positive: Atraumatic, Mucous membr. moist/pink Neck Exam: Positive: Supple Chest Exam: Positive: Clear to auscultation, Normal air movement Heart Exam: Positive: Rate Normal, Normal S1, Normal S2 Abdomen Exam: Positive: Normal bowel sounds, Soft Extremity Exam: Positive: Normal pulses, Other (, resolving hematoma at surgi yissel scar at the left knee) Neuro Exam: Positive: Normal Speech, Strength at 5/5 X4 ext, Sensation Intact Psych Exam: Positive: Mental status NL, Mood NL, Oriented x 3 Vital Signs Vital Signs Date Time Temp Pulse Resp B/P (MAP) Pulse Ox O2 Delivery O2 Flow Rate FiO2 08/06/18 15:20 98.0 92 16 116/76 (89) 98 08/06/18 09:24 Room Air Laboratory Data Labs 24H Laboratory Tests 2 08/06/18 10:11: Bedside Glucose (Misc Panel) 226H 08/06/18 11:57: POC Glucose (Misc Panel) 229H, POC Sodium (Misc Panel) 134L, POC Potassium (Misc Panel) 5.4H, POC Chloride (Misc Panel) 100, POC Total CO2 (Misc Panel) 22.0L, POC Blood Urea Nitrogen (Misc Panel 86H, POC Ionized Calcium (Misc Panel) 4.7, POC Creatinine (Misc Panel) 2.1H, POC Hematocrit (Misc Panel) 22.0L 08/06/18 12:57: Immature Granulocyte % (Auto) 0.7, White Blood Count 9.6, Red Blood Count 2.33L, Hemoglobin 7.4L, Hematocrit 21.7L, Mean Corpuscular Volume 93.1, Mean Corpuscular Hemoglobin 31.8, Mean Corpuscular Hemoglobin Concent 34.1, Red Cell Distribution Width 13.6, Platelet Count 155, Neutrophils (%) (Auto) 88.1H, Lymphocytes (%) (Auto) 6.8L, Monocytes (%) (Auto) 4.3, Eosinophils (%) (Auto) 0.1, Basophils (%) (Auto) 0.0, Neutrophils # (Auto) 8.4H, Lymphocytes # (Auto) 0.7L, Monocytes # (Auto) 0.4, Eosinophils # (Auto) 0.0, Basophils # (Auto) 0.0, Nucleated Red Blood Cells % (auto) 0.3H, Urine Appearance HAZY, Urine Color YELLOW, Urine pH 5.0, Urine Specific [place] 1.015, Urine Protein NEGATIVE, Urine Glucose (UA) NEGATIVE, Urine Ketones NEGATIVE, Urine Urobilinogen 0.2, Urine Bilirubin NEGATIVE, Urine Leukocyte Esterase NEGATIVE, Urine Blood NEGATIVE, Urine Nitrite NEGATIVE, Urine WBC (Auto) 0, Urine RBC (Auto) 0, Urine Hyaline Casts (Auto) 9, Urine Bacteria (Auto) NEGATIVE, Urine Squamous Epithelial Cells 0, Urine Mucus (Auto) SMALL, Urine Sperm (Auto) CBC/BMP Laboratory Tests 08/06/18 12:57 Red Blood Count 2.33 L, Mean Corpuscular Volume 93.1, Mean Corpuscular Hemoglobin 31.8, Mean Corpuscular Hemoglobin Concent 34.1, Red Cell Distribution Width 13.6, Neutrophils (%) (Auto) 88.1 H, Lymphocytes (%) (Auto) 6.8 L, Monocytes (%) (Auto) 4.3, Eosinophils (%) (Auto) 0.1, Basophils (%) (Auto) 0.0, Neutrophils # (Auto) 8.4 H, Lymphocytes # (Auto) 0.7 L, Monocytes # (Auto) 0.4, Eosinophils # (Auto) 0.0, Basophils # (Auto) 0.0 Problems (1) ABRIL (acute kidney injury) Status: Acute Problem Text: Admit to the [facility] with telemetry monitoring ABRIL most likely multifactorial secondary to dehydration secondary to poor oral intake as well as possibly mary inhibitors Repeat CMP has been ordered as the first one was only. POC. Chemistry done in ED , Creatinine is 2.0, which is elevated since when the patient was admitted in this hospital 4 days ago Discontinue ACEI IV hydration with normal saline 100 mL per hour . Encourage oral hydration Intake and output Repeat labs in a.m. again (2) Dehydration Status: Acute Problem Text: IV fluids at normal saline 100 mL per hour Repeat BUN/creatinine . Encourage oral hydration (3) Hyperkalemia Status: Acute Problem Text: Kayexalate given by ED We will again repeat CMP now and in 8 hours Correct potassium. If it's still high after the treatment (4) Anemia of unknown etiology Status: Acute Problem Text: Patient's hemoglobin was 8.9 on last admission. Today it 7.4, and when reviewing patient's old records, his hemoglobin was more than 13 in the June 2018, . He also has a diagnosis of iron deficiency anemia for which he is on iron and vitamin C supplements Is a stool guaiac was negative in ED, but I have requested 3 more stool guaiac studies to rule out GI bleed I requested iron studies as well as CT of the abdomen, pelvis and chest to rule out MALIGNANCY as patient also complaining of 10 pounds of unintentional weight loss since last 6 months. Patient never had a colonoscopy done and is willing to if needed. (5) Diabetes mellitus type 2 with neurological manifestations Status: Chronic Problem Text: Hold Glucophage. Patient will get CT of the chest and abdomen with IV contrast Fingerstick blood sugar every before meals and at bedtime with coverage has been ordered Globin A1c also has been ordered (6) HTN (hypertension) Status: Chronic Problem Text: Discontinue angiotensin-converting enzyme inhibitor, but continue beta lana Blood pressure under well control right now Adjust meds accordingly (7) S/P TKR (total knee replacement) Status: Acute Problem Text: Postoperative day #4 On eliquis for anticoagulation Will get x-ray of left knee to rule out hematoma Also would get venous Doppler studies of left lower extremity to rule out DVT PT evaluation Pain management (8) Constipation Status: Acute Problem Text: Most likely secondary to opiate pain meds Start Relistor as per orders Follow-up clinically with a bowel regimen Plan / VTE VTE Prophylaxis Ordered?: Yes DARBY SOTO MD Aug 06, 2018 16:10
--- NOTE | 2018-08-06 16:29 | REP ---
Clinical: Status post knee replacement. Technique AP and cross-table lateral views. Findings: The patient is status post left knee replacement with normal positioning and appearance to the femoral and tibial components. Overlying postsurgical changes appreciated. Impression: Status post left knee replacement. Electronically Signed by Wade Tijerina MD 08/06/2018 04:19 P
[2018-08-06 17:02] LABS: HEMOGLOBIN A1c 6.6 %
[2018-08-06] MEDS: GASTROGRAFIN SOLUTION 30ML PO SCH ×2 (17:20→17:50)
[2018-08-06] MEDS: HumaLOG INSULIN (NovoLOG) PER UNIT SC SCH (17:30)
[2018-08-06 18:03] LABS: ALBUMIN 2.8 GM/DL (3.2-5.2); BILIRUBIN,TOTAL 0.8 MG/DL (0.2-1.0); CALCIUM LEVEL 8.4 MG/DL (8.8-10.2); CREATININE FOR GFR 1.79 MG/DL (0.70-1.30); PERCENT SATURATION 39.3 % (19.7-50.0); POTASSIUM SERUM 4.6 MEQ/L (3.5-5.1)
[2018-08-06] MEDS ORDERED: HumaLOG INSULIN (NovoLOG) PER UNIT SC SCH (21:00)
[2018-08-06] MEDS: METOPROLOL TART 12.5 MG PER 1/2 TAB PO SCH (21:00)
[2018-08-06 22:00] VITALS: BP 114/72
--- NOTE | 2018-08-06 22:07 | ECGEPIP ---
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 Order Number: [id number] Reading MD: Barry Green Measurements Intervals [place] Rate: 91 P: 54 MS: 132 QRS: QRSD: 187 T: 142 QT: 409 QTc: 505 Interpretive Statements SINUS RHYTHM LEFT BUNDLE BRANCH BLOCK SIMILAR TO 07/20/18 Electronically Signed on 08-06-2018 22:07:10 EDT by Barry Green
[2018-08-06] MEDS: NS 1,000 ML IV SCH (22:18)
[2018-08-06] MEDS: ASCORBIC ACID 500 MG TAB PO SCH (23:26)
[2018-08-06] MEDS: DOCUSATE SODIUM 100 MG CAP PO SCH (23:26)
[2018-08-06] MEDS: FERROUS SULFATE 325MG TAB PO SCH (23:26)
[2018-08-07 06:00] VITALS: BP 106/67
[2018-08-07 06:13] LABS: HEMOGLOBIN 7.6 g/dl (13.5-17.5); MEAN CORPUSCULAR VOLUME 93.9 fl (80.0-96.0); PLATELET COUNT, AUTOMATED 154 10^3/uL (150-450); RED BLOOD COUNT 2.45 10^6/uL (4.30-6.10); WHITE BLOOD COUNT 8.1 10^3/uL (4.0-10.0)
[2018-08-07 06:42] LABS: ALBUMIN 2.8 GM/DL (3.2-5.2); BILIRUBIN,TOTAL 0.9 MG/DL (0.2-1.0); CALCIUM LEVEL 8.5 MG/DL (8.8-10.2); CREATININE FOR GFR 1.39 MG/DL (0.70-1.30); GLOMERULAR FILTRATION RATE 54.9 (>49); POTASSIUM SERUM 4.6 MEQ/L (3.5-5.1); TOTAL PROTEIN 6.2 GM/DL (6.4-8.2)
[2018-08-07] MEDS: HumaLOG INSULIN (NovoLOG) PER UNIT SC SCH ×2 (07:30→11:29)
--- NOTE | 2018-08-07 07:46 | REP ---
Clinical: Pain and swelling status post arthroplasty . Technique: Bahena scale and color Doppler evaluation using linear high frequency transducer. Findings: Ultrasound examination of the left lower extremity deep venous structures from the common femoral vein to the popliteal vein demonstrates normal compressibility flow and wave patterns in response to respiration and augmentation. There is no evidence for deep venous thrombosis. A large complex fluid collection is identified along the medial aspect of the left knee measuring 6.6 x 2.0 x 4.6 cm suggesting postsurgical changes including seroma and hematoma. Less likely abscess. Impression: No evidence for deep venous thrombosis. Complex fluid collection along the posterior medial knee. Findings may represent postsurgical seroma, hematoma and less likely abscess. Electronically Signed by Wade Tijerina MD 08/07/2018 07:38 A
[2018-08-07] MEDS ORDERED: RIVAROXABAN 10 MG TAB (XARELTO) PO SCH (08:00)
[2018-08-07] MEDS: ASCORBIC ACID 500 MG TAB PO SCH (08:31)
[2018-08-07] MEDS: FERROUS SULFATE 325MG TAB PO SCH (08:31)
[2018-08-07] MEDS: DOCUSATE SODIUM 100 MG CAP PO SCH (08:31)
[2018-08-07 08:32] VITALS: BP 123/78
[2018-08-07] MEDS: NS 1,000 ML IV SCH ×2 (08:32→12:00)
[2018-08-07] MEDS: METOPROLOL TART 12.5 MG PER 1/2 TAB PO SCH (08:32)
[2018-08-07] MEDS ORDERED: ASPIRIN 81 MG ENTERIC TAB PO SCH (09:00)
[2018-08-07] MEDS ORDERED: ROSUVASTATIN 10 MG TAB (CRESTOR) PO SCH (09:00)
[2018-08-07] MEDS ORDERED: TAMSULOSIN 0.4 MG CAP PO SCH (09:00)
[2018-08-07 10:15] LABS: BLOOD UREA NITROGEN 66 MG/DL (7-18); CALCIUM LEVEL 8.2 MG/DL (8.8-10.2); CARBON DIOXIDE LEVEL 21 MEQ/L (21-32); CHLORIDE LEVEL 106 MEQ/L (98-107); CREATININE FOR GFR 1.27 MG/DL (0.70-1.30); GLOMERULAR FILTRATION RATE > 60.0 (>49); GLUCOSE, FASTING 216 MG/DL (70-100); POTASSIUM SERUM 4.6 MEQ/L (3.5-5.1); SODIUM LEVEL 137 MEQ/L (136-145)
--- NOTE | 2018-08-07 11:11 | REP ---
REASON FOR EXAM: Assess for occult malignancy. There are no priors for comparison. The lack of intravenous contrast decreases the sensitivity of the exam. Original exam date and time 08/06/2018 at 6:52 p.m., however, the examination has been brought to my attention for the first time for interpretation today at this time. The lack of intravenous contrast decreases the sensitivity of the exam. Limited evaluation of the mediastinum and pulmonary vielka shows no evidence of a gross mass or adenopathy. There are no pleural or pericardial effusions. The imaged osseous structures are within normal limits for the patient's age. Evaluation of the lung borges shows no abnormal nodules, masses, or opacities. IMPRESSION: Unremarkable, but limited CT findings as described above. Electronically Signed by Jax Troncoso DO 08/07/2018 04:06 P
--- NOTE | 2018-08-07 11:13 | REP ---
REASON FOR EXAM: Rule out for occult malignancy. There are no priors for comparison. Only oral bowel preparatory contrast was administered prior to the exam. The lack of intravenous contrast administration decreases the sensitivity of the exam. Examination was performed 08/06/2018 at 1852 but has been brought to my attention for the first time for interpretation today at this time. Hepatic and splenic densities are within normal limits. There are no choleliths. A small amount of dense material is seen in the dependent portion of the gallbladder possibly representing dense sludge formation or tiny gravel-like choleliths. There is a 5 mm size nonobstructing calculus in the interpolar region of the right kidney. 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 There are no left nephroliths. There is pancreatic atrophy and fatty infiltration. The adrenal glands are within normal limits. Limited evaluation of the abdominal aorta and para-aortic regions show no gross abnormalities. There are right renal arterial calcifications. No free fluid or free air is seen in the abdomen. Limited evaluation of the intra-abdominal bowel loops and their mesenteries show no gross abnormalities. CT PELVIS: There are no urinary bladder calcifications. There are bilateral phleboliths. There is a slight degree of fatty infiltration adjacent to the superior pole of the left hemipelvic kidney. This is nonspecific and difficult to evaluate without intravenous contrast. There is no evidence of a pelvic mass. There is no free fluid or free air in the pelvis. Pelvic bowel loops are unremarkable. Bone window technique through the examination shows chronic spinal, hip, sacroiliac joint degenerative changes. IMPRESSION: 1. Non-ascended ectopic left hemipelvic kidney. 2. Small amount of nonspecific fatty infiltration abutting the superior pole of the left hemipelvic kidney. Early pyelonephritis cannot be ruled out. 3. Nonobstructing right nephrolith as described above. 4. Gallbladder sludge or possible tiny gravel-like choleliths. 5. Chronic pancreatic atrophy and fatty infiltration. 6. Other findings as described above. Electronically Signed by Jax Troncoso DO 08/07/2018 04:06 P
--- NOTE | 2018-08-07 12:43 | DS.PDOC ---
Discharge Summary General Date of Admission Aug 06, 2018 at 15:37 Date of Discharge Today Discharge Summary Chief complaints: Generalized fatigue and miscellaneous. Final diagnoses Acute kidney injury Anemia Recent history of total knee replacement History of Present Illness and Hospital course 62 years old white male with past medical history of hypertension, diabetes, hyperlipidemia, recently had a total left knee replacement done about 4 days ago. He came in with chief complaints of generalized not feeling good, tired, fatigue, malaise constipated, and generalized lethargy. Patient denies chest p ain, shortness of breath, nausea, vomiting or abdominal pain.. On further interview, patient was found to have a hemoglobin of 7.4. And his creatinine was 2.0 . The patient apparently was on captopril as well as Lasix. The patient was also taking some adjv-leg-hezgohe medications as per him. The patient was resuscitated with IV fluids and currently the creatinine has trended down to 1.2 and is around his baseline now. The patient was also found to be having a hemoglobin of 7.4 and on the discharge which was almost a week back is 8.6. The repeat hemoglobin has been 7.6. Stool for occult blood was negative and as well as iron panel was done which showed that the patient has elevated ferritin p ointing towards anemia of chronic disease. His hemoglobin remained stable and the patient denied any blood in the urine or any blood in the stool. Vision is relatively stable and will require possibly an outpatient colonoscopy for the PCP. He wants to go home and states that he will get every other test to be done as outpatient. Has been advised to avoid using any bebu-lag-biebbvk medications. His captopril as well as this has been kept on hold and he has been advised to follow with the PCP to get that reevaluated. Is medically optimized for discharge with follow-up with PCP. The CBC and CMP done within a week. He states that he can see his PCP in couple of days. Physical Examination General Exam: Alert, Cooperative Eye Exam: PERRLA ENT Exam: Atraumatic, Mucous membr. moist/pink Neck Exam: Supple Chest Exam: : Clear to auscultation, Normal air movement Heart Exam: Rate Normal, Normal S1, Normal S2 Abdomen Exam: Normal bowel sounds, Soft Extremity Exam: Normal pulses, Other (, resolving hematoma at surgical scar at the left knee) Neuro Exam: Normal Speech, Strength at 5/5 X4 ext, Sensation Intact Psych Exam: Mental status NL, Mood NL, Oriented x 3 Laboratory Tests 08/06/18 12:57 Red Blood Count 2.33 L, Mean Corpuscular Volume 93.1, Mean Corpuscular Hemoglobin 31.8, Mean Corpuscular Hemoglobin Concent 34.1, Red Cell Distribution Width 13.6, Neutrophils (%) (Auto) 88.1 H, Lymphocytes (%) (Auto) 6.8 L, Monocytes (%) (Auto) 4.3, Eosinophils (%) (Auto) 0.1, Basophils (%) (Auto) 0.0, Neutrophils # (Auto) 8.4 H, Lymphocytes # (Auto) 0.7 L, Monocytes # (Auto) 0.4, Eosinophils # (Auto) 0.0, Basophils # (Auto) 0.0 08/06/18 17:02 Calcium Level 8.4 L, Aspartate Amino Transf (AST/SGOT) 552 H, Alanine Aminotransferase (ALT/SGPT) 569 H, Alkaline Phosphatase 70, Total Bilirubin 0.8, Total Protein 6.0 L, Albumin 2.8 L 08/07/18 05:36 Red Blood Count 2.45 L, Mean Corpuscular Volume 93.9, Mean Corpuscular Hemoglobin 31.0, Mean Corpuscular Hemoglobin Concent 33.0, Red Cell Distribution Width 13.6, Calcium Level 8.5 L, Aspartate Amino Transf (AST/SGOT) 459 H, Alanine Aminotransferase (ALT/SGPT) 589 H, Alkaline Phosphatase 72, Total Bilirubin 0.9, Total Protein 6.2 L, Albumin 2.8 L 08/07/18 09:16 Calcium Level 8.2 L Vital Sign - Last 24 Hours 08/06/18 08/06/18 08/06/18 08/06/18 12:44 12:45 12:59 13:00 Pulse 93 91 B/P (MAP) 122/71 (88) 123/69 (87) Pulse Ox 99 96 08/06/18 08/06/18 08/06/18 08/06/18 13:14 13:21 13:29 13:44 Pulse 90 89 90 B/P (MAP) 109/73 (85) Pulse Ox 99 97 97 08/06/18 08/06/18 08/06/18 08/06/18 13:59 14:14 14:29 14:44 Pulse 88 89 93 93 Resp 14 Pulse Ox 96 98 81 98 08/06/18 08/06/18 08/06/18 08/06/18 14:59 15:14 15:20 15:35 Temp 98.0 Pulse 90 88 92 90 Resp 16 B/P (MAP) 116/76 (89) Pulse Ox 92 99 98 98 08/06/18 08/06/18 08/06/18 08/06/18 15:50 16:05 16:20 16:35 Pulse 90 91 97 103 Pulse Ox 96 92 96 96 08/06/18 08/06/18 08/06/18 08/07/18 18:50 21:00 22:00 06:00 Temp 98.2 97.6 96.7 Pulse 85 85 97 98 Resp 20 16 18 B/P (MAP) 118/71 (87) 112/71 114/72 (86) 106/67 (80) Pulse Ox 97 98 93 O2 Delivery Room Air 08/07/18 08:32 Pulse 98 B/P (MAP) 123/78 I&O- Last 24 Hours up to 6 AM 08/07/18 06:00 Intake Total 1775 ml Output Total 1100 ml Balance 675 ml Medications. As per dischargemedication list. Captopril and Lasix has been kept on hold Activity as tolerated Diet. ADA 1800-calorie diet Condition on discharge. Patient is medically optimized for discharge Discharge disposition is home Follow up appointment. pCP 1 week Total time spent on this discharge including coordination of care. Chart documentation, actual patient contact around 35 minutes Vital Signs/I&Os Vital Signs Date Time Temp Pulse Resp B/P (MAP) Pulse Ox O2 Delivery O2 Flow Rate FiO2 08/07/18 08:32 98 123/78 08/07/18 06:00 96.7 18 93 08/06/18 18:50 Room Air I&O- Last 24 Hours up to 6 AM 08/07/18 06:00 Intake Total 1775 ml Output Total 1100 ml Balance 675 ml Laboratory Data Labs 24H Laboratory Tests 2 08/06/18 12:57: Immature Granulocyte % (Auto) 0.7, White Blood Count 9.6, Red Blood Count 2.33L, Hemoglobin 7.4L, Hematocrit 21.7L, Mean Corpuscular Volume 93.1, Mean Corpuscular Hemoglobin 31.8, Mean Corpuscular Hemoglobin Concent 34.1, Red Cell Distribution Width 13.6, Platelet Count 155, Neutrophils (%) (Auto) 88.1H, Lymphocytes (%) (Auto) 6.8L, Monocytes (%) (Auto) 4.3, Eosinophils (%) (Auto) 0.1, Basophils (%) (Auto) 0.0, Neutrophils # (Auto) 8.4H, Lymphocytes # (Auto) 0.7L, Monocytes # (Auto) 0.4, Eosinophils # (Auto) 0.0, Basophils # (Auto) 0.0, Nucleated Red Blood Cells % (auto) 0.3H, Urine Appearance HAZY, Urine Color YELLOW, Urine pH 5.0, Urine Specific [place] 1.015, Urine Protein NEGATIVE, Urine Glucose (UA) NEGATIVE, Urine Ketones NEGATIVE, Urine Urobilinogen 0.2, Urine Bilirubin NEGATIVE, Urine Leukocyte Esterase NEGATIVE, Urine Blood NEGATIVE, Urine Nitrite NEGATIVE, Urine WBC (Auto) 0, Urine RBC (Auto) 0, Urine Hyaline Casts (Auto) 9, Urine Bacteria (Auto) NEGATIVE, Urine Squamous Epithelial Cells 0, Urine Mucus (Auto) SMALL, Urine Sperm (Auto) , Estimated Mean Plasma Glucose 143H, Hemoglobin A1c 6.6 08/06/18 17:02: Anion Gap 11, Glomerular Filtration Rate 41.0L, Blood Urea Nitrogen 79H, Creatinine 1.79H, Sodium Level 136, Potassium Level 4.6, Chloride Level 104, Carbon Dioxide Level 21, Calcium Level 8.4L, Aspartate Amino Transf (AST/SGOT) 552H, Alanine Aminotransferase (ALT/SGPT) 569H, Alkaline Phosphatase 70, Total Bilirubin 0.8, Total Protein 6.0L, Albumin 2.8L, Iron Level 83, Total Iron Binding Capacity 211L, Transferrin % Saturation 39.3, Ferritin 2854H, Albumin/Globulin Ratio 0.88L 08/06/18 19:06: Bedside Glucose (Misc Panel) 216H 08/06/18 21:07: Bedside Glucose (Misc Panel) 201H 08/07/18 05:36: Nucleated Red Blood Cells % (auto) 0.6H, Anion Gap 9, Glomerular Filtration Rate 54.9, Blood Urea Nitrogen 68H, Creatinine 1.39H, Sodium Level 137, Potassium Level 4.6, Chloride Level 107, Carbon Dioxide Level 21, Calcium Level 8.5L, Aspartate Amino Transf (AST/SGOT) 459H, Alanine Aminotransferase (ALT/SGPT) 589H, Alkaline Phosphatase 72, Total Bilirubin 0.9, Total Protein 6.2L, Albumin 2.8L, Albumin/Globulin Ratio 0.82L 08/07/18 09:16: Anion Gap 10, Glomerular Filtration Rate > 60.0, Blood Urea Nitrogen 66H, Creatinine 1.27, Sodium Level 137, Potassium Level 4.6, Chloride Level 106, Carbon Dioxide Level 21, Calcium Level 8.2L 08/07/18 11:02: Bedside Glucose (Misc Panel) 207H CBC/BMP Laboratory Tests 08/06/18 12:57 Red Blood Count 2.33 L, Mean Corpuscular Volume 93.1, Mean Corpuscular Hemoglobin 31.8, Mean Corpuscular Hemoglobin Concent 34.1, Red Cell Distribution Width 13.6, Neutrophils (%) (Auto) 88.1 H, Lymphocytes (%) (Auto) 6.8 L, Monocy ozzy (%) (Auto) 4.3, Eosinophils (%) (Auto) 0.1, Basophils (%) (Auto) 0.0, Neutrophils # (Auto) 8.4 H, Lymphocytes # (Auto) 0.7 L, Monocytes # (Auto) 0.4, Eosinophils # (Auto) 0.0, Basophils # (Auto) 0.0 08/06/18 17:02 Calcium Level 8.4 L, Aspartate Amino Transf (AST/SGOT) 552 H, Alanine Aminotransferase (ALT/SGPT) 569 H, Alkaline Phosphatase 70, Total Bilirubin 0.8, Total Protein 6.0 L, Albumin 2.8 L 08/07/18 05:36 Red Blood Count 2.45 L, Mean Corpuscular Volume 93.9, Mean Corpuscular Hemoglobin 31.0, Mean Corpuscular Hemoglobin Concent 33.0, Red Cell Distribution Width 13.6, Calcium Level 8.5 L, Aspartate Amino Transf (AST/SGOT) 459 H, Alanine Aminotransferase (ALT/SGPT) 589 H, Alkaline Phosphatase 72, Total Bilirubin 0.9, Total Protein 6.2 L, Albumin 2.8 L 08/07/18 09:16 Calcium Level 8.2 L FSBS Laboratory Tests Test 08/06/18 19:06 08/06/18 21:07 08/07/18 11:02 Range/Units Bedside Glucose (Misc Panel) 216 201 207 80-115 MG/DL Discharge Medications Scheduled Ascorbic Acid (Ascorbic Acid) 500 Mg Tablet, 500 MG PO BID, (Reported) Aspirin (Aspir 81) 81 Mg Tablet.dr, 81 MG PO DAILY, (Reported) ON HOLD DUE TO SURGERY ON 08/02/18 Captopril (Captopril) 12.5 Mg Tab, 12.5 MG PO BID, (Reported) Ferrous Sulfate (Ferrous Sulfate) 325 Mg Tab, 325 MG PO BID, (Reported) Furosemide (Furosemide) 40 Mg Tablet, 40 MG PO DAILY, (Reported) Glipizide (Glipizide) 5 Mg Tab, 5 MG PO DAILY, (Reported) Metformin HCl (Metformin HCl) 500 Mg Tab, 500 MG PO DAILY, (Reported) Metformin HCl (Metformin HCl) 500 Mg Tablet, 1,000 MG PO QHS, (Reported) Metoprolol Tartrate (Metoprolol Tartrate) 25 Mg Tablet, 12.5 MG PO BID, (Reported) Multivitamin (Multi-Vitamin Daily) 1 Tab Tab, 1 TAB PO DAILY, (Reported) Potassium Chloride (Klor-Con M20) 20 Meq Tabcr, 20 MEQ PO QHS, (Reported) Rivaroxaban (Xarelto) 10 Mg Tablet, 10 MG PO DAILY, (Reported) ON FOR 11 DAYS FOR DVT PROPHYLAXIS, STARTED 08/04 Rosuvastatin Calcium (Crestor) 5 Mg Tab, 5 MG PO DAILY, (Reported) Tamsulosin HCl (Flomax) 0.4 Mg Capsule, 0.4 MG PO DAILY, (Reported) Vitamin D (Vitamin D3) 1,000 Unit Tablet, 1,000 UNITS PO DAILY, (Reported) Scheduled PRN Acetaminophen (Acetaminophen) 500 Mg Tablet, 1,000 MG PO Q6H PRN for PAIN, (Reported) Oxycodone HCl/Acetaminophen (Oxycodone-Acetaminophen 5-325) 1 Each Tablet, 1 TAB PO Q4H PRN for PAIN, (Reported) Allergies Coded Allergies: atorvastatin (Verified Allergy, Unknown, rash, 08/02/18) ANNMARIE BUSH MD Aug 07, 2018 12:43
[2018-08-07 14:00] VITALS: BP 109/70
== END 2018-08-07 15:46 | disposition home or self-care (01) ==
LOC: EDBD 09:14 → M ED 09:14 → M ED INP 15:37 → M MSPAV 19:10
PROVIDERS: ADMIT Internal Medicine; ATTEND Internal Medicine
DX: N17.9 Acute kidney failure, unspecified (principal); E86.0 Dehydration; D64.9 Anemia, unspecified; E87.5 Hyperkalemia; E11.9 Type 2 diabetes mellitus without complications; I10 Essential (primary) hypertension; E78.49 Other hyperlipidemia; K59.00 Constipation, unspecified; Z79.82 Long term (current) use of aspirin; Z79.84 Long term (current) use of oral hypoglycemic drugs; Z79.899 Other long term (current) drug therapy; Z88.8 Allergy status to other drugs, medicaments and biological substances; Z96.652 Presence of left artificial knee joint
CPT/HCPCS: 36415; 71250; 73560; 74018; 74176; 80047; 80053; 81001; 82728; 83036; 83550; 84132; 85025; 85027; 93005; 93971; 96360; 96372; 97161; 99285; Q9963

== ENCOUNTER → 2018-08-31 | Outpatient (REF) | payer BC ==
[~2018-08-31] MED LIST changes: +ACET500T15 PO; +ASCO500T PO; +METO25TA4 PO; +OXYC1TAB23 PO
[2018-08-31 10:29] LABS: IONIZED CALCIUM 4.6 MG/DL (4.5-5.3)
[2018-08-31 10:41] LABS: BASO % 1.1 % (0.0-1.0); EOS # 0.1 10^3/uL (0.0-0.50); EOS % 2.8 % (0.0-3.0); HEMATOCRIT 33.7 % (42.0-52.0); HEMOGLOBIN 10.2 g/dl (13.5-17.5); LYMPH # 0.5 10^3/uL (1.5-4.5); LYMPH % 14.8 % (24.0-44.0); MEAN CORPUSCULAR HEMOGLOBIN 30.5 pg (27.0-33.0); MEAN CORPUSCULAR HGB CONC 30.3 g/dl (32.0-36.5); MEAN CORPUSCULAR VOLUME 100.9 fl (80.0-96.0); MONO # 0.2 10^3/uL (0.0-0.8); MONO % 6.4 % (0.0-5.0); NEUTROPHILS # 2.7 10^3/uL (1.8-7.7); NEUTROPHILS % 74.6 % (36.0-66.0); PLATELET COUNT, AUTOMATED 162 10^3/uL (150-450); RED BLOOD COUNT 3.34 10^6/uL (4.30-6.10); WHITE BLOOD COUNT 3.6 10^3/uL (4.0-10.0)
[2018-08-31 11:06] LABS: ALBUMIN 3.4 GM/DL (3.2-5.2); ALT/SGPT 18 U/L (12-78); BILIRUBIN,TOTAL 0.8 MG/DL (0.2-1.0); BLOOD UREA NITROGEN 18 MG/DL (7-18); CALCIUM LEVEL 8.9 MG/DL (8.8-10.2); CARBON DIOXIDE LEVEL 25 MEQ/L (21-32); CHLORIDE LEVEL 112 MEQ/L (98-107); CREATININE FOR GFR 0.98 MG/DL (0.70-1.30); GLOMERULAR FILTRATION RATE > 60.0 (>49); GLUCOSE, FASTING 93 MG/DL (70-100); POTASSIUM SERUM 4.6 MEQ/L (3.5-5.1); SODIUM LEVEL 144 MEQ/L (136-145); TOTAL PROTEIN 6.1 GM/DL (6.4-8.2)
== END ==
LOC: M LABDRAW1 09:42
PROVIDERS: ATTEND Student in an Organized Health Care Education/Training Program
DX: R94.5 Abnormal results of liver function studies (principal); E83.51 Hypocalcemia; D64.9 Anemia, unspecified

== ENCOUNTER → 2018-09-04 | Outpatient (CLI) | payer BC ==
--- NOTE | 2018-09-04 08:36 | REP ---
Clinical: Elevated liver function tests. Technique: Real time richardson scale and color Doppler ultrasound examination using curved array transducer. Findings: The liver demonstrates a mildly coarsened echotexture and includes 6.5 mm, 9.5 mm and 11 mm benign appearing hepatic cysts. Color Doppler evaluation demonstrates normal flow direction, wave pattern and velocity to the main portal vein. The pancreas is incompletely evaluated due to interposed bowel gas but visualized portions appear normal. Gallbladder demonstrates small gallstones without wall thickening or pericholecystic fluid. No biliary ductal dilatation is appreciated and the common bile duct measures 5.3 mm maximal diameter. The right kidney is normal in reniform shape without hydronephrosis and measures 11.7 x 5.1 x 4.3 cm. Suggestion for renovascular calcifications versus small nonobstructing renal calculi cannot be differentiated. Small amount of perihepatic fluid is suspected without significant ascites. Impression: 1. Liver includes coarsened echotexture which may reflect underlying hepatocellular disease as well as few scattered benign appearing small hepatic cysts. Doppler interrogation of the main portal vein demonstrates normal flow direction and velocity. Trace perihepatic fluid noted. 2. Cholelithiasis. 3. Cannot exclude small nonobstructing renal calculi and/or renovascular calcifications. Electronically Signed by Wade Tijerina MD 09/04/2018 08:27 A
== END ==
LOC: M RAD 06:50
PROVIDERS: ATTEND Student in an Organized Health Care Education/Training Program
DX: R94.5 Abnormal results of liver function studies (principal)

== ENCOUNTER 2018-09-17 14:46 | Inpatient (IN) | payer BC ==
[~2018-09-17] VITALS: Ht 172.7 cm; Wt 81.6 kg
[2018-09-17 15:42] LABS: VENOUS BASE EXCESS -1.3 (-2.0-2.0); VENOUS HCO3 24.2 MEQ/L (23.0-27.0); VENOUS O2 SATURATION 70.7 % (60.0-80.0); VENOUS PARTIAL PRESSURE CO2 43.9 mmHg (38.0-50.0); VENOUS PARTIAL PRESSURE O2 40.8 mmHg (30.0-50.0); VENOUS STANDARD HCO3 22.8 MEQ/L; VENOUS TOTAL CO2 25.6 MEQ/L (24.0-28.0)
[2018-09-17 15:50] LABS: BASO % 0.7 % (0.0-1.0); EOS # 0.1 10^3/uL (0.0-0.50); EOS % 1.4 % (0.0-3.0); HEMATOCRIT 35.4 % (42.0-52.0); HEMOGLOBIN 11.2 g/dl (13.5-17.5); LYMPH # 1.1 10^3/uL (1.5-4.5); LYMPH % 25.5 % (24.0-44.0); MEAN CORPUSCULAR HGB CONC 31.6 g/dl (32.0-36.5); MEAN CORPUSCULAR VOLUME 98.1 fl (80.0-96.0); MONO # 0.3 10^3/uL (0.0-0.8); MONO % 8.1 % (0.0-5.0); NEUTROPHILS # 2.7 10^3/uL (1.8-7.7); NEUTROPHILS % 64.1 % (36.0-66.0); PLATELET COUNT, AUTOMATED 158 10^3/uL (150-450); RED BLOOD COUNT 3.61 10^6/uL (4.30-6.10); WHITE BLOOD COUNT 4.2 10^3/uL (4.0-10.0)
[2018-09-17 16:23] LABS: ALBUMIN 3.7 GM/DL (3.2-5.2); ALT/SGPT 23 U/L (12-78); BILIRUBIN,DIRECT 0.3 MG/DL (0.0-0.2); BILIRUBIN,TOTAL 0.8 MG/DL (0.2-1.0); BLOOD UREA NITROGEN 23 MG/DL (7-18); CALCIUM LEVEL 8.9 MG/DL (8.8-10.2); CARBON DIOXIDE LEVEL 26 MEQ/L (21-32); CHLORIDE LEVEL 113 MEQ/L (98-107); CK-MB VALUE MASS 1.5 NG/ML (<3.6); CPK CREATINE PHOSPHOKINASE 52 U/L (39-308); CREATININE FOR GFR 0.98 MG/DL (0.70-1.30); GLOMERULAR FILTRATION RATE > 60.0 (>49); GLUCOSE, FASTING 99 MG/DL (70-100); MB/CK RELATIVE INDEX 2.88 (< OR =4); NT-PRO BNP 20241 PG/ML (<125); POTASSIUM SERUM 4.4 MEQ/L (3.5-5.1); SODIUM LEVEL 148 MEQ/L (136-145); THYROXINE (T4) 9.4 UG/DL (4.5-12.0); TOTAL PROTEIN 6.1 GM/DL (6.4-8.2); TROPONIN I 0.24 NG/ML (< 0.10)
[2018-09-17] MEDS ORDERED: FUROSEMIDE 100 MG/10 ML VIAL (J1940) IV ONE (16:45)
[2018-09-17 17:48] LABS: CK-MB VALUE MASS 1.6 NG/ML (<3.6); MB/CK RELATIVE INDEX 3.02 (< OR =4); TROPONIN I 0.26 NG/ML (< 0.10)
[2018-09-17] MEDS ORDERED: FURO40TA2 PO (18:19)
[2018-09-17] MEDS ORDERED: CAPT125TA PO (18:19)
[2018-09-17] MEDS ORDERED: GLUCOSE 4 GM CHEW TABLET PO PRN (18:30)
[2018-09-17] MEDS ORDERED: GLUCAGON FOR INJ 1 MG VIAL (J1610) SC PRN (18:30)
[2018-09-17] MEDS ORDERED: DEXTROSE 50% 50 ML SYRINGE IV PRN (18:30)
--- NOTE | 2018-09-17 18:37 | HPEPDOC ---
[facility] Medical History & Physical Date of Admission Sep 17, 2018 Date of Service: Sep 17, 2018 History and Physical PCP: Nancy CHIEF COMPLAINT: Shortness of breath HISTORY OF PRESENT ILLNESS: Patient is a 62-year-old man who tells me he has a history of a heart attack in 2011 and since that time he has been on Lasix for fluid retention. He tells me he has never been told he has congestive heart failure he does follow with a muck boss at [facility]. He tells me that since he recently had orthopedic surgery he was told to temporarily hold his home Lasix which she had been on for years. He tells me he has not taken the Lasix, he did present to his primary care provider after having been off it for about a month and a half with complaints of shortness of breath proximal noctu rnal dyspnea. His primary care 5 this morning did recommend x-ray and laboratory studies however he opted to present to the emergency room instead. He tells me that the symptoms were going on for approximately 1 week and progressively worsening.. Otherwise patient denies weight loss, hair loss, headache, visual changes, chest pain, cough, nausea, vomiting, diarrhea, abdominal pain, muscle aches, worsening arthritis, change in mood PAST MEDICAL HISTORY: 1. Coronary artery disease. 2. diabetes mellitus. 3. Hypertension. 4. Iron deficiency anemia 5. Left bundle branch block 6. Dyslipidemia 7. Vitamin D deficiency HOME MEDICATIONS: Please see below. ALLERGIES: Please see below PAST SURGICAL HISTORY: 1. Cardiac cath 2011. 2. Bone biopsy left foot. 3. Right hand surgery. SOCIAL HISTORY: Lives with: Brother, Employment: Not currently working, Tobacco use: Never smoker. ETOH: Denies last drink was greater than 2 months ago, Illicit drug use: Denies, Tattoos done unprofessionally: Denies, CODE STATUS: Focal FAMILY HISTORY:Reviewed and noncontributory REVIEW OF SYSTEMS: 10 systems reviewed and negative other than HPI PHYSICAL EXAMINATION: VITAL SIGNS: Temperature 97.9, pulse 84, respiratory rate 18, blood pressure 129/85, pulse oximetry 97 % on room air. GENERAL: Pleasant obese man sitting up in bed awake alert oriented speaking in complete sentences no acute distress he is accompanied by his sister HEENT: Moist mucous membranes no elevation and some subtle elevation in his CVP CARDIOVASCULAR: S1 S2 regular no additional heart sounds appreciated. RESPIRATORY: Clear to auscultation bilaterally. Rare bibasilar scattered rails ABDOMINAL: Bowel sounds present abdomen soft and nontender, obese EXTREMITIES: No clubbing cyanosis 1+ edema NEUROLOGICAL: Spontaneously moves all 4 extremities cranial 2 through 12 grossly intact no gross focal deficits appreciated PSYCHOLOGICAL: Appropriate LABORATORY DATA: See below. MICROBIOLOGY: Please see below. IMAGING: Chest x-ray: Report pending ASSESSMENT & PLAN: This is a 62-year-old man with decompensated congestive heart failure. PROBLEMS: 1. Decompensated congestive heart failure: My suspicion is for diastolic dysfunction. He reportedly has been on Lasix since he had a myocardial infarction in 2011. Since his diuretic has been held for his orthopedic surgery approximately 1-1/2 months ago he is gradually retaining fluid to the point he has become symptomatic within the last week. After 1 dose of IV Lasix in the emergency room he is feeling significantly improved I will continue with 40 IV twice a day. I will also check his I's and O's and daily weights salt restrict his diet. He has a slightly abnormal troponin likely secondary to demand ischemia. I will trend his troponins monitor him on telemetry ordered echocardiogram as we do not have one on file and attempt to obtain outside records from his muck boss. 2.Coronary artery disease: As outlined above, he is on aspirin and statin beta lana and CARLIE inhibitor 3. Iron deficiency anemia: Continue his ferrous sulfate 4. Dyslipidemia: Continue with statin 5. Vitamin D deficiency: Continue with supplementation 6. Diabetes mellitus: We will hold his home glipizide and metformin I'll provide him with insulin sliding scale 7. Hypertension: Controlled continue with beta lana and CARLIE inhibitor as well as diuretic DVT PROPHYLAXIS: Lovenox DISPOSITION: Admitted to PCU inpatient status Vital Signs Vital Signs Date Time Temp Pulse Resp B/P (MAP) Pulse Ox O2 Delivery O2 Flow Rate FiO2 09/17/18 17:45 129/86 (100) 09/17/18 17:31 84 97 09/17/18 14:47 97.9 18 Room Air Laboratory Data Labs 24H Laboratory Tests 2 09/17/18 15:30: Immature Granulocyte % (Auto) 0.2, White Blood Count 4.2, Red Blood Count 3.61L, Hemoglobin 11.2L, Hematocrit 35.4L, Mean Corpuscular Volume 98.1H, Mean Corpuscular Hemoglobin 31.0, Mean Corpuscular Hemoglobin Concent 31.6L, Red Cell Distribution Width 14.7H, Platelet Count 158, Neutrophils (%) (Auto) 64.1, Lymphocytes (%) (Auto) 25.5, Monocytes (%) (Auto) 8.1H, Eosinophils (%) (Auto) 1.4, Basophils (%) (Auto) 0.7, Neutrophils # (Auto) 2.7, Lymphocytes # (Auto) 1.1L, Monocytes # (Auto) 0.3, Eosinophils # (Auto) 0.1, Basophils # (Auto) 0.0, Nucleated Red Blood Cells % (auto) 0.0, Blood Gas Bicarbonate Standard 22.8, Venous Blood pH 7.360, Venous Blood Partial Pressure CO2 43.9, Venous Blood Partial Pressure O2 40.8, Venous Blood Total Carbon Dioxide 25.6, Venous Blood HCO3 24.2, Venous Blood Oxygen Saturation 70.7, Venous Blood Base Excess -1.3, Anion Gap 9, Glomerular Filtration Rate > 60.0, Lactic Acid Level 1.4, Calcium Level 8.9, Aspartate Amino Transf (AST/SGOT) 15, Alanine Aminotransferase (ALT/SGPT) 23, Alkaline Phosphatase 72, Total Bilirubin 0.8, Direct Bilirubin 0.3H, Total Creatine Kinase 52, Creatine Kinase MB 1.5, Creatine Kinase MB Relative Index 2.88, Troponin I 0.24H, PA-Vxl-T-Type Natriuretic Peptide 87460S, Total Protein 6.1L, Albumin 3.7, Albumin/Globulin Ratio 1.54, Thyroid Stimulating Hormone (TSH) 1.920, Thyroxine (T4) 9.4 09/17/18 17:10: Total Creatine Kinase 53, Creatine Kinase MB 1.6, Creatine Kinase MB Relative Index 3.02, Troponin I 0.26H CBC/BMP Laboratory Tests 09/17/18 15:30 Red Blood Count 3.61 L, Mean Corpuscular Volume 98.1 H, Mean Corpuscular Hemoglobin 31.0, Mean Corpuscular Hemoglobin Concent 31.6 L, Red Cell Distribution Width 14.7 H, Neutrophils (%) (Auto) 64.1, Lymphocytes (%) (Auto) 25.5, Monocytes (%) (Auto) 8.1 H, Eosinophils (%) (Auto) 1.4, Basophils (%) (Auto) 0.7, Neutrophils # (Auto) 2.7, Lymphocytes # (Auto) 1.1 L, Monocytes # (Auto) 0.3, Eosinophils # (Auto) 0.1, Basophils # (Auto) 0.0 Microbiology Microbiology 09/17/18 Blood Culture, Received Pending 09/17/18 Blood Culture, Received Pending Home Medications Scheduled Ascorbic Acid (Ascorbic Acid) 500 Mg Tablet, 500 MG PO BID Aspirin (Aspir 81) 81 Mg Tablet.dr, 81 MG PO DAILY Captopril (Captopril) 12.5 Mg Tablet, 12.5 MG PO BID CURRENTLY ON HOLD PER PT, NOT TOLD WHEN TO RESTART Ferrous Sulfate (Ferrous Sulfate) 325 Mg Tab, 325 MG PO BID Furosemide (Furosemide) 40 Mg Tablet, 40 MG PO DAILY CURRENTLY ON HOLD PER PT, NOT TOLD WHEN TO RESTART Glipizide (Glipizide) 5 Mg Tab, 5 MG PO DAILY Metformin HCl (Metformin HCl) 500 Mg Tab, 500 MG PO DAILY Metformin HCl (Metformin HCl) 500 Mg Tablet, 1,000 MG PO QHS Metoprolol Tartrate (Metoprolol Tartrate) 25 Mg Tablet, 12.5 MG PO BID Multivitamin (Multi-Vitamin Daily) 1 Tab Tab, 1 TAB PO DAILY Rosuvastatin Calcium (Crestor) 5 Mg Tab, 5 MG PO QHS Vitamin D (Vitamin D3) 1,000 Unit Tablet, 1,000 UNITS PO DAILY Allergies Coded Allergies: atorvastatin (Verified Allergy, Unknown, rash, 08/02/18) A-FIB/CHADSVASC A-FIB History Current/History of A-Fib/PAF?: No DIANNE ZHENG MD Sep 17, 2018 18:37
[2018-09-17] MEDS ORDERED: PILL CUTTER 1 EACH XX PRN (19:00)
--- NOTE | 2018-09-17 20:51 | ECGEPIP ---
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
--- NOTE | 2018-09-17 20:54 | ECGEPIP ---
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
[2018-09-17] MEDS: FERROUS SULFATE 325MG TAB PO SCH (21:00)
[2018-09-17] MEDS: METOPROLOL TART 12.5 MG PER 1/2 TAB PO SCH (21:00)
[2018-09-17] MEDS: HumaLOG INSULIN (NovoLOG) PER UNIT SC SCH (21:00)
[2018-09-17] MEDS: ASCORBIC ACID 500 MG TAB PO SCH (22:05)
[2018-09-17] MEDS: CAPTOpril 12.5 MG TAB PO SCH (22:05)
[2018-09-17] MEDS: ROSUVASTATIN 10 MG TAB (CRESTOR) PO SCH (22:05)
[2018-09-17 23:30] VITALS: BP 126/70
[2018-09-18 04:00] VITALS: BP 117/74
[2018-09-18 05:19] LABS: HEMOGLOBIN 10.7 g/dl (13.5-17.5); MEAN CORPUSCULAR HEMOGLOBIN 30.6 pg (27.0-33.0); MEAN CORPUSCULAR HGB CONC 31.5 g/dl (32.0-36.5); MEAN CORPUSCULAR VOLUME 97.1 fl (80.0-96.0); PLATELET COUNT, AUTOMATED 140 10^3/uL (150-450); WHITE BLOOD COUNT 4.4 10^3/uL (4.0-10.0)
[2018-09-18 05:47] LABS: BLOOD UREA NITROGEN 22 MG/DL (7-18); CALCIUM LEVEL 9.1 MG/DL (8.8-10.2); CARBON DIOXIDE LEVEL 29 MEQ/L (21-32); CHLORIDE LEVEL 110 MEQ/L (98-107); CREATININE FOR GFR 1.05 MG/DL (0.70-1.30); GLOMERULAR FILTRATION RATE > 60.0 (>49); GLUCOSE, FASTING 159 MG/DL (70-100); NT-PRO BNP 23892 PG/ML (<125); POTASSIUM SERUM 3.7 MEQ/L (3.5-5.1); SODIUM LEVEL 146 MEQ/L (136-145); TROPONIN I 0.27 NG/ML (< 0.10)
--- NOTE | 2018-09-18 07:32 | REP ---
Portable chest x-ray: Single view. History: Dyspnea and cough. Comparison chest x-ray: July 20, 2018. Findings: Today's chest x-ray shows moderate cardiac enlargement. This appears increased from the prior study. Pulmonary vasculature is cephalized and congested. No pleural effusion is seen. No definite pulmonary edema. Impression: CHF pattern with moderate cardiomegaly and pulmonary vascular congestion. No evidence of pleural effusion or pulmonary edema. Electronically Signed by Michael Harmon MD 09/18/2018 07:16 P
[2018-09-18 08:00] VITALS: BP 135/88
--- NOTE | 2018-09-18 08:44 | ECHO ---
DATE OF PROCEDURE: 09/17/2018 REFERRING PHYSICIAN: Dr. Steve Hill INDICATION: Congestive heart failure, coronary artery disease, history of myocardial infarction. HEIGHT: 68 inches. WEIGHT: 208 pounds. DIMENSIONS: IVS: 0.9 LV: 6.5 LVPW: 1.1 LA: 4.7 Aorta: 3.6 RV: 3.2 LA volume: 111 Ascending aorta: 3.3 Mitral E wave velocity: 75 A wave: 180 E prime septal: 6.0 E prime lateral: 3.5 IVC: 2.5 FINDINGS: The study is of good technical quality. The patient is in sinus rhythm. Left ventricle is severely dilated. There is extensive wall motion abnormality that involves the whole septum that is essentially dyskinetic, apex that is akinetic, distal anterior and lateral perla that are also akinetic and distal inferior wall which is also akinetic. Remaining left ventricle segments are globally hypokinetic. Relatively best preserved is mid and base anterior wall and mid and base inferior wall. Over computer calculated LVEF was 32%, I would estimate EF in the neighborhood of 25%. No visible left ventricle thrombus is seen. Right ventricle is dilated and hypokinetic. Both atria are severely enlarged, left much more than right. Aortic valve is sclerotic, but it has 3 cusps and preserved mobility. Mitral valve appears structurally normal. Same applies for tricuspid and pulmonic valves. No pericardial effusion is noted. Inferior vena cava is dilated and there is only partial collapse with respiration indicative of high central venous pressure. Aortic root appears normal. Aortic arch and abdominal aorta were not well seen. Doppler interrogation of the aortic valve reveals no stenosis or insufficiency. There is approximately moderate mitral insufficiency with the MR jet being both oriented centrally and a segment of it also very eccentric. I assume that the etiology of the MR is principally due to LV enlargement, but there is also a component of structural disease, possibly small prolapse that I could not appreciate by 2-D imaging. There is mild tricuspid insufficiency. Calculated pulmonary artery pressure is at minimum in high 50s, that would correspond at minimum to moderate and possibly moderately severe pulmonary hypertension. Mitral inflow pattern and tissue Doppler imaging of mitral annulus reveals grade 1 diastolic dysfunction, but tissue Doppler velocities of mitral annulus are very low and I suspect even more advanced forms of diastolic dysfunction. CONCLUSIONS: 1. Study of good technical quality. 2. Dilated left ventricle with both global and segmental wall motion abnormalities as described above and overall severe left ventricle systolic dysfunction. At least grade 1 diastolic dysfunction. 3. Moderate mitral insufficiency. 5. High central venous pressure. 6. At least moderate and probably moderately severe pulmonary hypertension. 7. Dilated right ventricle. COMMENTS: Subacute bacterial endocarditis (SBE) prophylaxis is not recommended. The study is consistent with ischemic cardiomyopathy.
[2018-09-18] MEDS: ENOXAPARIN 40 MG/0.4 ML SYRINGE (J1650) SC SCH (08:49)
[2018-09-18] MEDS: CAPTOpril 12.5 MG TAB PO SCH ×2 (08:50→20:27)
[2018-09-18] MEDS: ASCORBIC ACID 500 MG TAB PO SCH ×2 (08:50→20:27)
[2018-09-18] MEDS: ASPIRIN 81 MG ENTERIC TAB PO SCH (08:50)
[2018-09-18] MEDS: METOPROLOL TART 12.5 MG PER 1/2 TAB PO SCH (08:50)
[2018-09-18] MEDS: FERROUS SULFATE 325MG TAB PO SCH ×2 (08:50→20:27)
[2018-09-18] MEDS: VITAMIN D 1,000 INTERNATIONAL UNITS TABLET PO SCH (08:50)
[2018-09-18] MEDS: FUROSEMIDE 40 MG/4 ML VIAL (J1940) IV SCH ×2 (08:51→17:30)
[2018-09-18] MEDS: HumaLOG INSULIN (NovoLOG) PER UNIT SC SCH ×4 (08:51→20:32)
[2018-09-18 12:00] VITALS: BP 106/72
--- NOTE | 2018-09-18 13:50 | IPNPDOC ---
Date Seen The patient was seen on 09/18/18. Progress Note SUBJECTIVE: Patient is a 62-year-old white male with a past medical history of myocardial infarction, Coronary artery disease, diabetes mellitus, hypertension, Iron deficiency anemia, left bundle branch block, dyslipidemia, and vitamin D deficiency who presented to the emergency room with shortness of breath. Patient states that he had an NH in 2011 and has been on lasix for fluid retention since then. Patient follows up with [facility] [employer] [facility] at [facility] in [place] and denies ever being told that he has congestive heart failure. He recently had surgery on his left knee and was told to stop taking the lasix for a month and a half. He presented to his PCP yesterday with shortness of breath and paroxysmal nocturnal dyspnea. He was told to get an x-ray and lab studies done and return to PCP office in a week. He decided to present to the ER because his symptoms were getting increasingly worse. He denies weight loss, visual changes, chest pain, cough, nausea, vomiting, diarrhea, abdominal pain, or muscle aches. Patient was examined at bedside. He states that he feels much better today after receiving a dose of lasix yesterday in the ER. Mr. Chaudhari admits that he only feels short of breath when he is lying flat on the bed. He prefers to sleep with two pillows behind his head and enjoys being active. He denies fevers, chills, chest pain, palpitations, vision changes, nausea, or vomiting. His echocardiogram showed an EF of 25% with left atrial, left ventricular, and right ventricular dilation. Dr. Ashraf has been consulted for recommendation of medical therapy vs AICD. OBJECTIVE PHYSICAL EXAMINATION: VITAL SIGNS: Please see below. GENERAL: a 62 year old male sitting in a chair. He is speaking comfortably in full sentences and is not in any acute distress. HEENT: NC AT, neck is supple CARDIOVASCULAR: Regular rate and rhythm, blood pressure is 117/74 RESPIRATORY: inspiratory wheeze heard bilaterally ABDOMINAL: soft, non tender to palpation, normal bowel sounds EXTREMITIES: trace edema noted in lower extremities NEUROLOGICAL: no focal deficits, alert and oriented x3 PSYCHOLOGICAL: appropriate affect LABORATORY DATA, IMAGING STUDIES, MICROBIOLOGY: Please see below. Echocardiogram 09/18/18: 1. Study of good technical quality. 2. Dilated left ventricle with both global and segmental wall motion abnormalities as described above and overall severe left ventricle systolic dysfunction. At least grade 1 diastolic dysfunction. 3. Moderate mitral insufficiency. 5. High central venous pressure. 6. At least moderate and probably moderately severe pulmonary hypertension. 7. Dilated right ventricle. DVT prophylaxis ordered?: Yes, thinox ASSESSMENT AND PLAN: Patient is a 62-year-old white male with a past medical history of myocardial infarction, Coronary artery disease, diabetes mellitus, hypertension, Iron deficiency anemia, left bundle branch block, dyslipidemia, and vitamin D deficiency PROBLEMS: 1. Severe systolic congestive heart failure with EF of 25% -Cardiology Dr. Ashraf has been consulted for recommendation medical therapy vs AICD -EF 51% in 2018 (record in chart) , repeat echo today show EF <25%, see above for full impression -Patient on 48 hour telemetry; trending troponins (downtrending) -c/w lasix + catopril -stop lopressor start coreg 6.25 mg BID, -strict I's/O's, daily weights, salt restricted diet 2. Coronary artery disease -c/w ASA, statin, beta lana, and mary inhibitor 3. Iron deficiency anemia -c/w Iron supplement 4. Dyslipidemia -c/w statin 5. Vitamin D deficiency -c/w vitamin D supplement 6. Diabetes mellitus -start patient on sliding scale insulin 7. Hypertension -c/w beta lana, mary inhibitor, and diuretic DISPOSITION: Patient is stable. Dr. Ashraf has been consulted for recommendation of medical therapy vs AICD. Monitoring patient on telemetry. We appreciate Cardiology for their input. VS, I&O, 24H, Fishbone Vital Signs/I&O Vital Signs Date Time Temp Pulse Resp B/P (MAP) Pulse Ox O2 Delivery O2 Flow Rate FiO2 09/18/18 12:00 98.4 81 18 106/72 (83) 99 09/17/18 22:09 Room Air I&O- Last 24 Hours up to 6 AM 09/18/18 06:00 Intake Total 450 ml Output Total 3000 ml Balance -2550 ml Laboratory Data 24H LABS Laboratory Tests 2 09/17/18 15:30: Immature Granulocyte % (Auto) 0.2, White Blood Count 4.2, Red Blood Count 3.61L, Hemoglobin 11.2L, Hematocrit 35.4L, Mean Corpuscular Volume 98.1H, Mean Co rpuscular Hemoglobin 31.0, Mean Corpuscular Hemoglobin Concent 31.6L, Red Cell Distribution Width 14.7H, Platelet Count 158, Neutrophils (%) (Auto) 64.1, Lymphocytes (%) (Auto) 25.5, Monocytes (%) (Auto) 8.1H, Eosinophils (%) (Auto) 1.4, Basophils (%) (Auto) 0.7, Neutrophils # (Auto) 2.7, Lymphocytes # (Auto) 1.1L, Monocytes # (Auto) 0.3, Eosinophils # (Auto) 0.1, Basophils # (Auto) 0.0, Nucleated Red Blood Cells % (auto) 0.0, Blood Gas Bicarbonate Standard 22.8, Venous Blood pH 7.360, Venous Blood Partial Pressure CO2 43.9, Venous Blood Partial Pressure O2 40.8, Venous Blood Total Carbon Dioxide 25.6, Venous Blood HCO3 24.2, Venous Blood Oxygen Saturation 70.7, Venous Blood Base Excess -1.3, Anion Gap 9, Glomerular Filtration Rate > 60.0, Lactic Acid Level 1.4, Calcium Level 8.9, Aspartate Amino Transf (AST/SGOT) 15, Alanine Aminotransferase (ALT/SGPT) 23, Alkaline Phosphatase 72, Total Bilirubin 0.8, Direct Bilirubin 0.3H, Total Creatine Kinase 52, Creatine Kinase MB 1.5, Creatine Kinase MB Relative Index 2.88, Troponin I 0.24H, QJ-Ihp-P-Type Natriuretic Peptide 10543S, Total Protein 6.1L, Albumin 3.7, Albumin/Globulin Ratio 1.54, Thyroid Stimulating Hormone (TSH) 1.920, Thyroxine (T4) 9.4 09/17/18 17:10: Total Creatine Kinase 53, Creatine Kinase MB 1.6, Creatine Kinase MB Relative Index 3.02, Troponin I 0.26H 09/17/18 22:08: Bedside Glucose (Misc Panel) 130H 09/17/18 22:43: Troponin I 0.27H 09/18/18 04:57: Nucleated Red Blood Cells % (auto) 0.0, Anion Gap 7L, Glomerular Filtration Rate > 60.0, Blood Urea Nitrogen 22H, Creatinine 1.05, Sodium Level 146H, Potassium Level 3.7, Chloride Level 110H, Carbon Dioxide Level 29, Calcium Level 9.1, Troponin I 0.27H, JT-[id number]-G-Type Natriuretic Peptide [id number] 8/13/19 11:29: Troponin I 0.26H 09/18/18 11:31: Bedside Glucose (Misc Panel) 120H CBC/BMP Laboratory Tests 09/17/18 15:30 Red Blood Count 3.61 L, Mean Corpuscular Volume 98.1 H, Mean Corpuscular Hemoglobin 31.0, Mean Corpuscular Hemoglobin Concent 31.6 L, Red Cell Distribution Width 14.7 H, Neutrophils (%) (Auto) 64.1, Lymphocytes (%) (Auto) 25.5, Monocytes (%) (Auto) 8.1 H, Eosinophils (%) (Auto) 1.4, Basophils (%) (Auto) 0.7, Neutrophils # (Auto) 2.7, Lymphocytes # (Auto) 1.1 L, Monocytes # (Auto) 0.3, Eosinophils # (Auto) 0.1, Basophils # (Auto) 0.0 09/18/18 04:57 Red Blood Count 3.50 L, Mean Corpuscular Volume 97.1 H, Mean Corpuscular Hemoglobin 30.6, Mean Corpuscular Hemoglobin Concent 31.5 L, Red Cell Distribution Width 14.7 H, Calcium Level 9.1 Microbiology Microbiology 09/17/18 Blood Culture, Received Pending 09/17/18 Blood Culture, Received Pending TAVO DOMINGO-3 Sep 18, 2018 13:50
[2018-09-18 16:00] VITALS: BP 110/68
[2018-09-18 20:00] VITALS: BP 112/67
[2018-09-18] MEDS: ROSUVASTATIN 10 MG TAB (CRESTOR) PO SCH (20:27)
[2018-09-18] MEDS: CARVedilol 6.25 MG TAB PO SCH (20:28)
[2018-09-18 23:59] VITALS: BP 117/70
[2018-09-19 04:00] VITALS: BP 122/80
[2018-09-19 05:30] LABS: HEMATOCRIT 37.4 % (42.0-52.0); HEMOGLOBIN 11.8 g/dl (13.5-17.5); MEAN CORPUSCULAR HEMOGLOBIN 30.4 pg (27.0-33.0); MEAN CORPUSCULAR HGB CONC 31.6 g/dl (32.0-36.5); MEAN CORPUSCULAR VOLUME 96.4 fl (80.0-96.0); PLATELET COUNT, AUTOMATED 171 10^3/uL (150-450); RED BLOOD COUNT 3.88 10^6/uL (4.30-6.10); WHITE BLOOD COUNT 4.9 10^3/uL (4.0-10.0)
[2018-09-19 05:59] LABS: BLOOD UREA NITROGEN 22 MG/DL (7-18); CALCIUM LEVEL 9.4 MG/DL (8.8-10.2); CARBON DIOXIDE LEVEL 32 MEQ/L (21-32); CHLORIDE LEVEL 107 MEQ/L (98-107); CREATININE FOR GFR 1.17 MG/DL (0.70-1.30); GLOMERULAR FILTRATION RATE > 60.0 (>49); GLUCOSE, FASTING 120 MG/DL (70-100); NT-PRO BNP 15445 PG/ML (<125); POTASSIUM SERUM 4.3 MEQ/L (3.5-5.1); SODIUM LEVEL 144 MEQ/L (136-145)
[2018-09-19] MEDS ORDERED: CLOP75TA2 PO (07:49)
[2018-09-19 08:00] VITALS: BP 129/83
[2018-09-19] MEDS: ENOXAPARIN 40 MG/0.4 ML SYRINGE (J1650) SC SCH (08:15)
[2018-09-19] MEDS: FERROUS SULFATE 325MG TAB PO SCH (08:15)
[2018-09-19] MEDS: ASPIRIN 81 MG ENTERIC TAB PO SCH (08:16)
[2018-09-19] MEDS: CAPTOpril 12.5 MG TAB PO SCH (08:16)
[2018-09-19 08:17] VITALS: BP 129/83
[2018-09-19] MEDS: CARVedilol 6.25 MG TAB PO SCH (08:17)
[2018-09-19] MEDS: ASCORBIC ACID 500 MG TAB PO SCH (08:17)
[2018-09-19] MEDS: HumaLOG INSULIN (NovoLOG) PER UNIT SC SCH ×2 (08:17→11:50)
[2018-09-19] MEDS: VITAMIN D 1,000 INTERNATIONAL UNITS TABLET PO SCH (08:17)
--- NOTE | 2018-09-19 08:32 | CR ---
DATE OF CONSULTATION: 09/19/2018 REFERRING PHYSICIAN: Dr. Hill INDICATION: Congestive heart failure. HISTORY OF PRESENT ILLNESS: Mr. Chaudhari is a very pleasant 62-year-old man who carries a history of coronary artery disease. He presented with non-ST elevation myocardial infarction (STEMI) in 2011 that led to intervention to left anterior descending (LAD) and left circumflex artery in [facility] ([facility] He has been followed since by Dr. Maldonado who is a progress worker associated with [facility]. He was clinically well and has not had any problems since until this presentation. The patient tells me that he had a left knee replacement in July 2018 and prior to the surgery he was instructed to discontinue captopril and furosemide. The medications were not restarted after the surgery. He was doing initially well, but in last approximately 2-3 weeks he started noticing initially paroxysmal nocturnal dyspnea (PND). It led to the point that he was not able to sleep flat for several days and eventually led to his admission. On presentation to the emergency room, he was found to be in congestive heart failure as evidenced by extremely elevated BNP and also typical finding by physical exam and chest x-ray. His troponin was marginally elevated and ECG revealed left bundle branch block that has been known to be chronic. He has been treated principally with diuresis. He also was put back on captopril. Today, the patient tells me that he feels much better. He was able to sleep last night without any PND or dyspnea and is able to ambulate without any significant shortness of breath. He would like to go home. PAST MEDICAL HISTORY: 1. Coronary artery disease as above. We have records available from Dr. Maldonado from 2017 when he was seen the last time. He had a nuclear stress test that revealed normal perfusion and left ventricle ejection fraction 51%. He also had an echocardiogram that was confirming preserved left ventricular systolic function and no significant valvular disease. 2. Type 2 diabetes, diagnosed in 2011. 3. Hypertension. 4. Chronic left bundle branch block. 5. Dyslipidemia. PAST SURGICAL HISTORY: 1. Right hand surgery. 2. Left foot biopsy. 3. Left knee replacement. SOCIAL HISTORY: The patient is single, lives with his brother. He is employed by [employer]. He does not smoke and never did. He drinks occasional beer, but minimal amount. FAMILY HISTORY: One of his brothers has renal failure and is on dialysis. A second brother had recently coronary artery bypass surgery. His parents of smoking related issues, mother with lung cancer and father emphysema. ALLERGIES: He is intolerant of atorvastatin. OUTPATIENT MEDICATIONS: - aspirin 81 mg a day - glipizide 5 mg a day - metformin 500 mg in the morning and 1 gram at night - metoprolol 12.5 twice a day - Crestor 5 mg a day - vitamin D3 He used to be also on furosemide 40 mg daily and captopril 12.5 mg twice a day, but he has not been taking these medications for the last several weeks. REVIEW OF SYSTEMS: He denies any recent fever, chills, nausea, vomiting, diarrhea. He denies any changes in his weight. He denies any chest discomfort. He has noted mild peripheral edema, but nothing significant. He tells me that his weight has not appreciably changed in the last several months. The rest of review of systems is negative. PHYSICAL EXAMINATION: Mr. Chaudhari is a very pleasant man. He appears alert and oriented and appropriate. No distress at all. His jugular venous pulse (JVP is not high. Lungs are clear. Good air movement. No wheezing, crackles or rhonchi. Heart exam reveals a displaced precordial impulse. He does have paradoxically splitting second heart sound and he has a blowing murmur at the apex about 3/6 intensity radiating towards his axilla. I do not appreciate gallop. Abdomen is soft, nontender. No hepatosplenomegaly. There is no peripheral edema. Peripheral pulses are palpable. Neurologically, he is intact. I do not appreciate skin lesions. LABORATORY DATA: CBC reveals a hemoglobin 11.8, hematocrit 37.4 and platelet count 171,000. Basic metabolic panel reveals sodium 144, potassium 4.3, BUN 22, creatinine 1.2, glucose 120. Last N-terminal pro BNP was 15,000. The presenting one was 20,000. He has had several troponins that were all mildly elevated in 0.25 range without appreciable trend. Several ECGs all revealed sinus rhythm and left bundle branch block. Chest x-ray is consistent with cardiomegaly and congestive heart failure. He had an echocardiogram that I interpreted. It revealed dilated left ventricle with extensive segmental wall motion abnormalities suggestive of LAD distribution of myocardial damage with overall ejection fraction (EF) in the neighborhood of 25-30%. There is at least moderate mitral insufficiency. The right ventricle also appeared dilated and there is at least moderate if not moderately severe pulmonary hypertension. ASSESSMENT/PLAN: Mr. Chaudhari is a pleasant 62-year-old man who presents with congestive heart failure which is acute and systolic in nature. Because just last year he had preserved left ventricular systolic function, I have to assume that he has suffered an ischemic event since and he will ultimately require coronary angiography for further evaluation. I do not believe that it has to be done on an emergency basis in the form of transfer because he has not had any angina and his clinical status is improving. Also, I do not believe that the event occurred in the last several days because his troponin is basically only minimally elevated, which is likely a consequence of congestive heart failure, but I do believe that we should give him an additional antiplatelet agent and I will add Plavix to his regimen that should be continued. As far as the management of congestive heart failure is concerned, he reports marked improvement clinically since his admission. I do believe that there are further medication changes that can be instituted. First of all, I think that he would benefit from use of Entresto instead of captopril and the dose of beta lana can probably be titrated further, but the patient is really desiring to go home and I believe that this is acceptable. I reviewed his telemetry tracings and he has not had any arrhythmias. Consequently, I do not object to his discharge even later today. I recommend that he be started on furosemide 40 mg daily and I will add a small dose of spironolactone to his regimen, 12.5 mg daily. I intend to see him in followup next week and will arrange for outpatient cardiac catheterization in that setting.
[2018-09-19] MEDS ORDERED: SPIRONOLACTONE 12.5MG PER 1/2 TABLET PO SCH (09:00)
[2018-09-19] MEDS ORDERED: FUROSEMIDE 40 MG TAB PO SCH (09:00)
[2018-09-19] MEDS ORDERED: CLOPIDOGREL 75 MG TAB PO SCH (09:00)
[2018-09-19] MEDS ORDERED: CARV6.25 PO (09:59)
[2018-09-19] MEDS ORDERED: ALDA25TA2 PO (09:59)
--- NOTE | 2018-09-19 10:36 | DS.PDOC ---
Discharge Summary General Date of Admission Sep 17, 2018 at 18:21 Date of Discharge September 19, 2018 Attending Physician: DIANNE ZHENG MD Specialist/Consultants Involve: Mi Ashraf MD Discharge Summary PROCEDURES PERFORMED DURING STAY: Echocardiogram 09/18/[address] Ashraf: 1. Study of good technical quality. 2. Dilated left ventricle with both global and segmental wall motion abnormalities as described above and overall severe left ventricle systolic dysfunction. At least grade 1 diastolic dysfunction. 3. Moderate mitral insufficiency. 5. High central venous pressure. 6. At least moderate and probably moderately severe pulmonary hypertension. 7. Dilated right ventricle. ADMITTING DIAGNOSES: 1.Decompensated congestive heart failure 2. Coronary artery disease. 3. diabetes mellitus. 4. Hypertension. 5. Iron deficiency anemia 6. Left bundle branch block 7. Dyslipidemia 8. Vitamin D deficiency DISCHARGE DIAGNOSES: 1. Severe systolic congestive heart failure with EF of 25% 2. Coronary artery disease 3. Iron deficiency anemia 4. Dyslipidemia 5. Vitamin D deficiency 6. Diabetes mellitus 7. Hypertension COMPLICATIONS/CHIEF COMPLAINT: Shortness of breath HISTORY OF PRESENT ILLNESS: Patient is a 62-year-old white male with a past [facility] history of myocardial infarction, Coronary artery disease, diabetes mellitus, hypertension, Iron deficiency anemia, left bundle branch block, dyslipidemia, and vitamin D deficiency who presented to the emergency room with shortness of breath. Patient states that he had an SD in 2011 and has been on lasix for fluid retention since then. 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 He recently had surgery on his left knee and was told to stop taking the lasix for a month and a half. He presented to his PCP yesterday with shortness of breath and paroxysmal nocturnal dyspnea. He was told to get an x-ray and lab studies done and return to PCP office in a week. He decided to present to the ER because his symptoms were getting increasingly worse. He denies weight loss, visual changes, chest pain, cough, nausea, vomiting, diarrhea, abdominal pain, or muscle aches. HOSPITAL COURSE: Patient was treated for congestive heart failure and received a dose of lasix in the ER. He felt increasingly better after receiving the dose of lasix. Venous blood cultures were negative after 48 hours of growth. An echocardiogram showed a severely dilated left ventricle, left atrium, and right ventricle. His ejection fraction is estimated to be 25%. Dr. Ashraf was consulted and recommended the patient start on furosemide, spironolactone, and clopidogrel upon discharge. He will followup with Dr. Ashraf for a cardiac catheterization as outpatient in 1 week. It is suspected that the patient may have had an ischemic event in the last year but he denies ever having angina. He continued to be afebrile for the duration of his stay. He is also recommended to follow up with his PCP in one week. DISCHARGE MEDICATIONS: Please see below. ALLERGIES: Please see below. PHYSICAL EXAMINATION ON DISCHARGE: VITAL SIGNS: Please see below. GENERAL: a 62 year old male sitting in a chair. He is speaking comfortably in full sentences and is not in any acute distress. HEENT: NC AT, neck is supple, mucous membranes moist and pink CARDIOVASCULAR: Regular rate and rhythm, diastolic murmur heard best at apex appreciated. blood pressure is 122/80 RESPIRATORY: inspiratory wheeze heard bilaterally. No rales or rhonchi appreciated ABDOMINAL: soft, non tender to palpation, normal bowel sounds EXTREMITIES: 1+ pitting edema to the knee noted in lower extremities NEUROLOGICAL: no focal deficits, alert and oriented x3 PSYCHOLOGICAL: appropriate affect LABORATORY DATA: Please see below. IMAGING: Chest x-ray 09/17/18: CHF pattern with moderate cardiomegaly and pulmonary vascular congestion. No evidence of pleural effusion or pulmonary edema. PROGNOSIS: Fair ACTIVITY: As tolerated DIET: 2 gram sodium diet DISPOSITION: Discharging patient home DISCHARGE INSTRUCTIONS: 1. return to the emergency room in the event of an emergency ITEMS TO FOLLOWUP ON ON OUTPATIENT: 1. Follow up with PCP in 1 week 2. Follow up with Dr. Ashraf in 1 week DISCHARGE CONDITION: Stable TIME SPENT ON DISCHARGE: Greater than 35 minutes. Vital Signs/I&Os Vital Signs Date Time Temp Pulse Resp B/P (MAP) Pulse Ox O2 Delivery O2 Flow Rate FiO2 09/19/18 08:17 86 129/83 09/19/18 08:00 98.1 18 97 09/17/18 22:09 Room Air I&O- Last 24 Hours up to 6 AM 09/19/18 06:00 Intake Total 1210 ml Output Total 3075 ml Balance -1865 ml Laboratory Data Labs 24H Laboratory Tests 2 09/18/18 11:29: Troponin I 0.26H 09/18/18 11:31: Bedside Glucose (Misc Panel) 120H 09/18/18 16:51: Bedside Glucose (Misc Panel) 175H 09/18/18 20:26: Bedside Glucose (Misc Panel) 138H 09/19/18 05:04: Nucleated Red Blood Cells % (auto) 0.0, Anion Gap 5L, Glomerular Filtration Rate > 60.0, Blood Urea Nitrogen 22H, Creatinine 1.17, Sodium Level 144, Potassium Level 4.3, Chloride Level 107, Carbon Dioxide Level 32, Calcium Level 9.4, [id number]-Type Natriuretic Peptide [id number] CBC/BMP Laboratory Tests 09/19/18 05:04 Red Blood Count 3.88 L, Mean Corpuscular Volume 96.4 H, Mean Corpuscular Hemoglobin 30.4, Mean Corpuscular Hemoglobin Concent 31.6 L, Red Cell Distribution Width 14.6 H, Calcium Level 9.4 FSBS Laboratory Tests Test 09/18/18 11:31 09/18/18 16:51 09/18/18 20:26 Range/Units Bedside Glucose (Misc Panel) 120 175 138 80-115 MG/DL Microbiology Microbiology 09/17/18 Blood Culture - Preliminary, Resulted No growth after 24 hours . All specim... 09/17/18 Blood Culture - Preliminary, Resulted No growth after 24 hours . All specim... Discharge Medications Scheduled Ascorbic Acid (Ascorbic Acid) 500 Mg Tablet, 500 MG PO BID, (Reported) Aspirin (Aspir 81) 81 Mg Tablet.dr, 81 MG PO DAILY, (Reported) Captopril (Captopril) 12.5 Mg Tablet, 12.5 MG PO BID, (Reported) CURRENTLY ON HOLD PER PT, NOT TOLD WHEN TO RESTART Carvedilol (Carvedilol) 6.25 Mg Tablet, 6.25 MG PO BID Clopidogrel Bisulfate (Clopidogrel) 75 Mg Tablet, 75 MG PO DAILY Ferrous Sulfate (Ferrous Sulfate) 325 Mg Tab, 325 MG PO BID, (Reported) Furosemide (Furosemide) 40 Mg Tablet, 40 MG PO DAILY, (Reported) CURRENTLY ON HOLD PER PT, NOT TOLD WHEN TO RESTART Glipizide (Glipizide) 5 Mg Tab, 5 MG PO DAILY, (Reported) Metformin HCl (Metformin HCl) 500 Mg Tab, 500 MG PO DAILY, (Reported) Metformin HCl (Metformin HCl) 500 Mg Tablet, 1,000 MG PO QHS, (Reported) Multivitamin (Multi-Vitamin Daily) 1 Tab Tab, 1 TAB PO DAILY, (Reported) Rosuvastatin Calcium (Crestor) 5 Mg Tab, 5 MG PO QHS, (Reported) Spironolactone (Aldactone) 25 Mg Tablet, 12.5 MG PO DAILY Vitamin D (Vitamin D3) 1,000 Unit Tablet, 1,000 UNITS PO DAILY, (Reported) Allergies Coded Allergies: atorvastatin (Verified Allergy, Unknown, rash, 08/02/18) TAVO DOMINGO [facility] Sep 19, 2018 10:36
== END 2018-09-19 13:50 | disposition home or self-care (01) | DRG 194 ==
LOC: M ED 14:46 → M ED INP 18:21 → M PCU 23:43
PROVIDERS: ADMIT Internal Medicine; ATTEND Internal Medicine
DX: I11.0 Hypertensive heart disease with heart failure (principal); E55.9 Vitamin D deficiency, unspecified; E11.9 Type 2 diabetes mellitus without complications; E78.5 Hyperlipidemia, unspecified; D50.9 Iron deficiency anemia, unspecified; I25.10 Atherosclerotic heart disease of native coronary artery without angina pectoris; I44.7 Left bundle-branch block, unspecified; I34.0 Nonrheumatic mitral (valve) insufficiency; I25.2 Old myocardial infarction; Z79.899 Other long term (current) drug therapy; Z79.82 Long term (current) use of aspirin; I50.21 Acute systolic (congestive) heart failure

== ENCOUNTER 2018-10-17 10:03 | Emergency (ER) | payer BC ==
[~2018-10-17] VITALS: Ht 172.7 cm; Wt 94.5 kg
[~2018-10-17 10:03] MED LIST changes: +ALDA25TA2 PO; +CARV6.25 PO; +CHOL100029 PO; -VITAD1000T PO
[2018-10-17] MEDS ORDERED: ASPI-261 PO (10:30)
--- NOTE | 2018-10-17 10:53 | REP ---
CT brain without contrast: History: Neurologic symptoms. No comparison brain CT. 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 The paranasal sinuses are clear as visualized. There is moderate vascular calcification in the distal carotid and distal vertebral arteries bilaterally. There is a mild pattern of generalized volume loss. There is no evidence of intracranial hemorrhage. No acute infarction is seen. No mass, extra-axial fluid collection, or midline shift is seen. Impression: Moderate vascular calcification and mild generalized volume loss. No acute intracranial abnormality. Electronically Signed by Michael Harmon MD 10/17/2018 10:45 A
[2018-10-17 11:38] LABS: BASO % 0.4 % (0.0-1.0); EOS # 0.4 10^3/uL (0.0-0.5); EOS % 5.2 % (0.0-3.0); HEMATOCRIT 31.3 % (42.0-52.0); HEMOGLOBIN 10.2 g/dl (13.5-17.5); LYMPH # 0.8 10^3/uL (1.5-5.0); LYMPH % 11.6 % (24.0-44.0); MEAN CORPUSCULAR HEMOGLOBIN 29.9 pg (27.0-33.0); MEAN CORPUSCULAR HGB CONC 32.6 g/dl (32.0-36.5); MEAN CORPUSCULAR VOLUME 91.8 fl (80.0-96.0); MONO # 0.6 10^3/uL (0.0-0.8); MONO % 8.9 % (0.0-5.0); NEUTROPHILS # 5.2 10^3/uL (1.5-8.5); NEUTROPHILS % 73.2 % (36.0-66.0); PLATELET COUNT, AUTOMATED 182 10^3/uL (150-450); RED BLOOD COUNT 3.41 10^6/uL (4.30-6.10); WHITE BLOOD COUNT 7.2 10^3/uL (4.0-10.0)
[2018-10-17 11:56] LABS: INR 1.19; PROTHROMBIN TIME 14.8 SECONDS (11.8-14.0)
--- NOTE | 2018-10-17 12:05 | REP ---
CHEST, PORTABLE: AP portable view of the chest is performed and compared to a prior study of 09/17/2018. There is cardiomegaly. Mediastinal silhouette is unchanged. There are mild patchy areas of density in each lung base, left greater than right compatible with mild patchy bibasilar atelectasis/infiltrate. Multiple sternal wires are present. IMPRESSION: Cardiomegaly. Mild patchy bibasilar atelectasis/infiltrate, left greater than right. Electronically Signed by Stalin Bahena MD 10/18/2018 09:23 A
[2018-10-17 12:10] LABS: BLOOD UREA NITROGEN 32 MG/DL (7-18); CALCIUM LEVEL 8.8 MG/DL (8.8-10.2); CARBON DIOXIDE LEVEL 28 MEQ/L (21-32); CHLORIDE LEVEL 105 MEQ/L (98-107); CK-MB VALUE MASS 1.3 NG/ML (<3.6); CPK CREATINE PHOSPHOKINASE 32 U/L (39-308); CREATININE FOR GFR 0.99 MG/DL (0.70-1.30); GLOMERULAR FILTRATION RATE > 60.0 (>49); GLUCOSE, FASTING 107 MG/DL (70-100); MB/CK RELATIVE INDEX 4.06 (< OR =4); POTASSIUM SERUM 4.4 MEQ/L (3.5-5.1); SODIUM LEVEL 142 MEQ/L (136-145); TROPONIN I 2.28 NG/ML (< 0.10)
--- NOTE | 2018-10-17 12:28 | REP ---
MRI of the brain without contrast Indication: Expressive aphasia, recent open-heart surgery. Comparison: CT head of 10/17/2018. Technique: MRI of the brain was performed without contrast utilizing sagittal T1 FLAIR, and axial DWI, T1, T2, GRE, and FLAIR imaging. Findings: There is no restricted diffusion to suggest acute ischemia or infarction. There is a tiny focus of T2 hyperintensity within the left frontal lobe which is nonspecific. The ventricles and sulci are symmetric. There is no extra-axial fluid collection. There is a punctate focus of susceptibility in the left frontal lobe on GRE sequence, suggestive of microhemorrhage. There is no mass effect. There is no midline shift or basal cistern effacement. The visualized flow voids are preserved. The visualized paranasal sinuses and mastoid air cells are clear. Impression: No acute ischemia or infarction. Minimal nonspecific white matter change. Single focus of susceptibility within the left frontal lobe consistent with microhemorrhage. Electronically Signed by Daniela Pizarro MD 10/17/2018 12:20 P
--- NOTE | 2018-10-17 12:35 | REP ---
MRA of the brain without contrast Indication: Expressive aphasia, recent open-heart surgery. Comparison: None Technique: 3D time of flight MR angiogram of the [place] of [place] was performed without contrast. MIP images of the vessels were obtained including tumble and spin MIP imaging. Findings: There is antegrade flow within the distal ICAs and proximal MCAs and ACAs, the distal vertebral arteries, basilar artery and proximal sheep rancher. The left A1 is hypoplastic. There is mild asymmetry with more distal branches of the left MCA visible than the right. There is no evidence of cerebrovascular occlusion or aneurysmal formation. Impression: No cerebrovascular occlusion or aneurysmal formation. 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 Mild asymmetry with more distal branches of the left MCA visible than the right. Electronically Signed by Daniela Pizarro MD 10/17/2018 12:27 P
[2018-10-17] MEDS ORDERED: FOLI1TAB11 PO (13:28)
[2018-10-17] MEDS ORDERED: DAILTAB51 PO (13:28)
[2018-10-17] MEDS ORDERED: ACET1TAB55 PO (13:28)
[2018-10-17] MEDS ORDERED: CARV3.12 PO (13:28)
[2018-10-17] MEDS ORDERED: POTA10TA17 PO (13:28)
[2018-10-17 14:10] LABS: CK-MB VALUE MASS 1.2 NG/ML (<3.6); MB/CK RELATIVE INDEX 3.75 (< OR =4); TROPONIN I 2.19 NG/ML (< 0.10)
[2018-10-17] MEDS ORDERED: NS 1,000 ML IV SCH (14:15)
[2018-10-17 14:45] VITALS: BP 124/75
--- NOTE | 2018-10-18 07:21 | ECGEPIP ---
[facility] - ED Test Date: 2018-10-17 Pat Name: BROCK DUBOIS Department: Room: - Gender: Male Cma: ct : 1955 Requested By: DANO HARRY PA-C. Order Number: [id number] Reading MD: Fabiola Mclain Measurements Intervals Hardy Rate: 84 P: 41 IL: 181 QRS: -16 QRSD: 173 T: 135 QT: 429 QTc: 510 Interpretive Statements SINUS RHYTHM LEFT BUNDLE BRANCH BLOCK LAE LAD SIMILAR 09/17/18 Electronically Signed on 10-18-2018 7:21:11 EDT by Fabiola Mclain
== END 2018-10-17 14:49 | disposition short-term general hospital (02) ==
LOC: M ED 10:03
DX: G45.9 Transient cerebral ischemic attack, unspecified (principal); I61.9 Nontraumatic intracerebral hemorrhage, unspecified; I51.7 Cardiomegaly; I44.7 Left bundle-branch block, unspecified; J98.11 Atelectasis; R79.89 Other specified abnormal findings of blood chemistry; E11.9 Type 2 diabetes mellitus without complications; Z79.899 Other long term (current) drug therapy; Z79.82 Long term (current) use of aspirin; Z79.84 Long term (current) use of oral hypoglycemic drugs; Z88.8 Allergy status to other drugs, medicaments and biological substances; Z95.1 Presence of aortocoronary bypass graft; Z95.4 Presence of other heart-valve replacement; Z95.5 Presence of coronary angioplasty implant and graft

== ENCOUNTER → 2018-10-31 | Outpatient (REF) | payer BC ==
[~2018-10-31] MED LIST changes: +ACET1TAB55 PO; +ASPI-261 PO; +CARV3.12 PO; +DAILTAB51 PO; +FOLI1TAB11 PO; +POTA10TA17 PO
[2018-10-31 13:55] LABS: TOTAL PROTEIN 6.6 GM/DL (6.4-8.2)
[2018-10-31 14:13] LABS: URINE TOTAL PROTEIN 15.3 MG/DL (0-12)
[2018-11-01 11:37] LABS: ALBUMIN % 58.1 % (55.8-66.1); ALPHA-1-GLOBULIN % 6.3 % (2.9-4.9); ALPHA-2-GLOBULINS % 11.6 % (7.1-11.8); BETA-1-GLOBULINS % 6.2 % (4.7-7.2); BETA-2-GLOBULINS % 4.4 % (3.2-6.5); GAMMA GLOBULIN % 13.4 % (11.1-18.8)
[2018-11-01 11:38] LABS: ALBUMIN 3.83 GM/DL (3.29-5.55); ALPHA-1-GLOBULINS 0.42 GM/DL (0.17-0.41); ALPHA-2-GLOBULINS 0.77 GM/DL (0.42-0.99); BETA-1-GLOBULINS 0.41 GM/DL (0.28-0.60); BETA-2-GLOBULINS 0.29 GM/DL (0.19-0.55); GAMMA GLOBULINS 0.88 GM/DL (0.65-1.58)
[2018-11-01 12:51] LABS: UPEP INTERPRETATION NO M-SPIKE NOTED; URINE VOLUME RANDOM ML
== END ==
LOC: M LABDRAW1 11:45
PROVIDERS: ATTEND Student in an Organized Health Care Education/Training Program
DX: E77.8 Other disorders of glycoprotein metabolism (principal)

== ENCOUNTER → 2018-12-10 | Outpatient (REF) | payer BC ==
[2018-12-10 15:41] LABS: HEMATOCRIT 38.8 % (42.0-52.0); HEMOGLOBIN 12.4 g/dl (13.5-17.5); MEAN CORPUSCULAR HEMOGLOBIN 29.9 pg (27.0-33.0); MEAN CORPUSCULAR VOLUME 93.5 fl (80.0-96.0); PLATELET COUNT, AUTOMATED 176 10^3/uL (150-450); RED BLOOD COUNT 4.15 10^6/uL (4.30-6.10); WHITE BLOOD COUNT 5.7 10^3/uL (4.0-10.0)
[2018-12-10 15:45] LABS: CALCIUM LEVEL 9.5 MG/DL (8.8-10.2); CREATININE FOR GFR 1.3 MG/DL (0.70-1.30); GLOMERULAR FILTRATION RATE 59.2 (>49); POTASSIUM SERUM 5.1 MEQ/L (3.5-5.1)
== END ==
LOC: M LABDRAW1 15:29
PROVIDERS: ATTEND Physician Assistant
DX: I25.5 Ischemic cardiomyopathy (principal)

== ENCOUNTER → 2021-01-12 | Outpatient (CLI) | payer OTHER ==
[~2021-01-12] MED LIST changes: -ASPI-261 PO; +ASPI-584 PO; +ASPI81TA86 PO; -KLOR20TA42 PO; +POTA-141 PO; +VITA-243 PO; -VITA500T PO
--- NOTE | 2021-01-13 06:15 | REP ---
INDICATION: EVAL FOR ANGELA COMPARISON: None TECHNIQUE: Real time richardson scale ultrasound examination using curved array transducer followed by color Doppler evaluation of the renal vasculature. FINDINGS: The bilateral kidneys are normal in reniform shape demonstrating increased central sinus fat and mild cortical thinning consistent with chronic medical renal disease. There is no evidence for hydronephrosis. Right kidney measures 12.0 x 6.1 x 5.2 cm. Left kidney measures 10.4 x 4.0 x 4.2 cm and is identified within the left hemipelvis and includes 3.5 cm upper pole vascular mass requiring further investigation. Color Doppler evaluation. Peak aortic velocity: 98.8 centimeters/second RIGHT KIDNEY Renal arterial velocity: 132 centimeters/second Renal-aortic ratio: 1.3 Intrarenal resistive indices: 0.62-0.78 Intrarenal acceleration times: 0.03-0.04 LEFT KIDNEY Renal arterial velocity: 122 centimeters/second Renal-aortic ratio: 1.2 Intrarenal resistive indices: 0.81-0.83 Intrarenal acceleration times: 0.04-0.04 IMPRESSION: 1. 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 Pre and postcontrast CT of the abdomen and pelvis is recommended for further investigation.. 2. Doppler interegation without sonographic evidence for renal arterial stenosis. <Electronically signed by Wade Tijerina > 01/13/21 2073
== END ==
LOC: M RAD 09:10
PROVIDERS: ATTEND Nurse Practitioner Family
DX: R93.429 Abnormal radiologic findings on diagnostic imaging of unspecified kidney (principal); D49.512 Neoplasm of unspecified behavior of left kidney; N18.30 Chronic kidney disease, stage 3 unspecified

== ENCOUNTER → 2021-03-12 | Outpatient (REF) | payer OTHER ==
[2021-03-12 13:15] LABS: APPEARANCE, URINE TURBID (CLEAR); BACTERIA, URINE AUTO 1+ (NEGATIVE); BILIRUBIN, URINE AUTO NEGATIVE (NEGATIVE); BLOOD, URINE BLOOD NEGATIVE (NEGATIVE); COLOR, URINE YELLOW (YELLOW); GLUCOSE, URINE (UA) AUTO 3+ mg/dL (NEGATIVE); KETONE, URINE AUTO TRACE mg/dL (NEGATIVE); LEUKOCYTE ESTERASE, URINE AUTO 2+ (NEGATIVE); NITRITE, URINE AUTO NEGATIVE (NEGATIVE); PROTEIN, URINE AUTO 2+ mg/dL (NEGATIVE); RBC, URINE AUTO 5 /HPF (0-3); SPECIFIC GRAVITY URINE AUTO 1.015 (1.002-1.035); SQUAMOUS EPITHELIAL CELL UR AU 0 /HPF (0-6); WBC, URINE AUTO TNTC /HPF (0-3)
== END ==
LOC: M SMT 12:36
PROVIDERS: ATTEND Nurse Practitioner Women's Health
DX: N28.89 Other specified disorders of kidney and ureter (principal)

== ENCOUNTER → 2021-03-19 | Outpatient (CLI) | payer OTHER ==
[~2021-03-19] MED LIST changes: +ISOVUE-370 76% 100ML VIAL As Ordered ONE
== END ==
LOC: M RAD 08:53
PROVIDERS: ATTEND Nurse Practitioner Women's Health
DX: N28.89 Other specified disorders of kidney and ureter (principal); K76.89 Other specified diseases of liver
CPT/HCPCS: 74170; Q9967

== ENCOUNTER → 2021-04-21 | Outpatient (CLI) | payer OTHER ==
[~2021-04-21] MED LIST changes: -ISOVUE-370 76% 100ML VIAL As Ordered ONE; +METF10004 PO
[2021-04-21 13:57] LABS: INR 1.2; PROTHROMBIN TIME 15.6 SECONDS (12.7-14.5)
[2021-04-21 13:58] LABS: PARTIAL THROMBOPLASTIN TIME 39.2 SECONDS (25.9-37.0)
== END ==
LOC: M PLALAB 09:08
PROVIDERS: ATTEND Urology
DX: N28.89 Other specified disorders of kidney and ureter (principal)

== ENCOUNTER → 2021-04-28 | Outpatient (CLI) | payer OTHER ==
[~2021-04-28] MED LIST changes: +LIDOCAINE 1% MDV 20ML VIAL As Ordered ONE
[2021-04-28 15:35] VITALS: BP 172/89
== END ==
LOC: M IRPRO 11:22
PROVIDERS: ATTEND Urology
DX: C64.2 Malignant neoplasm of left kidney, except renal pelvis (principal); Q63.2 Ectopic kidney

== ENCOUNTER → 2021-05-25 | Outpatient (POV) | payer OTHER ==
[~2021-05-25] VITALS: Ht 172.7 cm; Wt 88.1 kg
[~2021-05-25] MED LIST changes: -LIDOCAINE 1% MDV 20ML VIAL As Ordered ONE
[2021-05-25 15:45] VITALS: BP 145/84
== END ==
LOC: M IRPOV 15:36
PROVIDERS: ATTEND Radiology Diagnostic Radiology
DX: C64.2 Malignant neoplasm of left kidney, except renal pelvis (principal); E11.9 Type 2 diabetes mellitus without complications; E78.5 Hyperlipidemia, unspecified; I10 Essential (primary) hypertension; I25.10 Atherosclerotic heart disease of native coronary artery without angina pectoris; I25.2 Old myocardial infarction; Z79.82 Long term (current) use of aspirin; Z88.8 Allergy status to other drugs, medicaments and biological substances; Z95.1 Presence of aortocoronary bypass graft; Z95.810 Presence of automatic (implantable) cardiac defibrillator

== ENCOUNTER → 2021-07-01 | Outpatient (CLI) | payer OTHER ==
[~2021-07-01] MED LIST changes: +ISOVUE-300 61% 50ML VIAL As Ordered ONE; +LIDOCAINE 1% MDV 20ML VIAL As Ordered ONE; +MIDAZOLAM INJ 2MG/2ML VIAL (J2250 PER 1MG) As Ordered ONE; +NS 1,000 ML IV SCH; +PROMETHAZINE 25MG/ML 1ML VIAL As Ordered ONE; +SPIR-10 PO; +diphenhydrAMINE 50MG/ML VIAL (J1200) As Ordered ONE; +fentaNYL 100 MCG/2 ML INJECTION As Ordered ONE
[2021-07-01 14:00] VITALS: BP 132/79
== END ==
LOC: M IRPRO 06:45
PROVIDERS: ATTEND Radiology Diagnostic Radiology
DX: C65.2 Malignant neoplasm of left renal pelvis (principal); Q63.8 Other specified congenital malformations of kidney; Z79.84 Long term (current) use of oral hypoglycemic drugs; Z88.8 Allergy status to other drugs, medicaments and biological substances
CPT/HCPCS: 50593; 77012; 99152; 99153; C2618; J1200; J2250; J2550; J3010; Q9967

== ENCOUNTER → 2021-07-27 | Outpatient (POV) | payer OTHER ==
[~2021-07-27] VITALS: Ht 172.7 cm; Wt 90.9 kg
[~2021-07-27] MED LIST changes: -ISOVUE-300 61% 50ML VIAL As Ordered ONE; -LIDOCAINE 1% MDV 20ML VIAL As Ordered ONE; -MIDAZOLAM INJ 2MG/2ML VIAL (J2250 PER 1MG) As Ordered ONE; -NS 1,000 ML IV SCH; -PROMETHAZINE 25MG/ML 1ML VIAL As Ordered ONE; -diphenhydrAMINE 50MG/ML VIAL (J1200) As Ordered ONE; -fentaNYL 100 MCG/2 ML INJECTION As Ordered ONE
[2021-07-27 07:35] VITALS: BP 124/65
== END ==
LOC: M IRPOV 07:21
PROVIDERS: ATTEND Radiology Diagnostic Radiology
DX: Z48.816 Encounter for surgical aftercare following surgery on the genitourinary system (principal); C64.9 Malignant neoplasm of unspecified kidney, except renal pelvis

== ENCOUNTER → 2021-09-30 | Outpatient (CLI) | payer OTHER ==
[~2021-09-30] MED LIST changes: +POTA-150 PO; -POTA10TA17 PO
[2021-09-30 09:57] LABS: CALCIUM LEVEL 9.6 MG/DL (8.8-10.2); CREATININE FOR GFR 1.53 MG/DL (0.70-1.30); GLOMERULAR FILTRATION RATE 48.7 (>49); POTASSIUM SERUM 4.4 MEQ/L (3.5-5.1)
== END ==
LOC: M LAB 08:11
PROVIDERS: ATTEND Radiology Diagnostic Radiology
DX: C64.9 Malignant neoplasm of unspecified kidney, except renal pelvis (principal)

== ENCOUNTER → 2021-10-01 | Outpatient (CLI) | payer OTHER ==
[~2021-10-01] MED LIST changes: +ISOVUE-370 76% 100ML VIAL As Ordered ONE
== END ==
LOC: M RAD 08:52
PROVIDERS: ATTEND Radiology Diagnostic Radiology
DX: C64.9 Malignant neoplasm of unspecified kidney, except renal pelvis (principal); Z98.890 Other specified postprocedural states; K76.89 Other specified diseases of liver; K86.2 Cyst of pancreas; M41.25 Other idiopathic scoliosis, thoracolumbar region; M51.37 Other intervertebral disc degeneration, lumbosacral region
CPT/HCPCS: 74177; Q9967

== ENCOUNTER → 2021-10-12 | Outpatient (POV) | payer OTHER ==
[~2021-10-12] VITALS: Ht 172.7 cm; Wt 90.9 kg
[~2021-10-12] MED LIST changes: -ASPI-584 PO; +ASPI325T62 PO; -ISOVUE-370 76% 100ML VIAL As Ordered ONE
[2021-10-12 09:00] VITALS: BP 129/73
== END ==
LOC: M IRPOV 08:22
PROVIDERS: ATTEND Radiology Diagnostic Radiology
DX: C65.9 Malignant neoplasm of unspecified renal pelvis (principal); Z88.8 Allergy status to other drugs, medicaments and biological substances

== ENCOUNTER → 2022-07-14 | Outpatient (CLI) | payer MEDICARE, OTHER ==
[~2022-07-14] MED LIST changes: +CLOP75TA99 PO; -PLAV1TAB2 PO
[2022-07-14 08:39] LABS: CALCIUM LEVEL 9.1 MG/DL (8.3-10.6); CREATININE FOR GFR 1.65 MG/DL (0.70-1.30); GLOMERULAR FILTRATION RATE 44.5 (>49); POTASSIUM SERUM 4.7 MMOL/L (3.5-5.1)
== END ==
LOC: M LAB 07:06
PROVIDERS: ATTEND Urology
DX: C64.2 Malignant neoplasm of left kidney, except renal pelvis (principal)

== ENCOUNTER → 2022-08-05 | Outpatient (CLI) | payer MEDICARE, OTHER ==
[~2022-08-05] MED LIST changes: +ISOVUE-370 76% 100ML VIAL ONE
== END ==
LOC: M PLAIMG 08:18
PROVIDERS: ATTEND Urology
DX: Z85.528 Personal history of other malignant neoplasm of kidney (principal)
CPT/HCPCS: 74178; Q9967

== ENCOUNTER → 2023-07-17 | Outpatient (CLI) | payer OTHER, MEDICARE ==
[~2023-07-17] MED LIST changes: -ASPI325T62 PO; +BAYE325T PO; +GLIP5TAB17 PO; -GLIP5TAB8 PO; -ISOVUE-370 76% 100ML VIAL ONE
[2023-07-17 10:51] LABS: CALCIUM LEVEL 8.6 MG/DL (8.3-10.6); CREATININE FOR GFR 1.64 MG/DL (0.70-1.30); GLOMERULAR FILTRATION RATE 44.7 (>49)
== END ==
LOC: M PLALAB 07:32
PROVIDERS: ATTEND Urology
DX: C64.2 Malignant neoplasm of left kidney, except renal pelvis (principal)

== ENCOUNTER → 2023-07-21 | Outpatient (CLI) | payer OTHER, MEDICARE ==
[~2023-07-21] MED LIST changes: +ISOVUE-370 76% 100ML VIAL ONE
== END ==
LOC: M PLAIMG 08:59
PROVIDERS: ATTEND Urology
DX: C64.2 Malignant neoplasm of left kidney, except renal pelvis (principal); N28.1 Cyst of kidney, acquired; N40.0 Benign prostatic hyperplasia without lower urinary tract symptoms; N32.89 Other specified disorders of bladder
CPT/HCPCS: 74178; Q9967

== ENCOUNTER → 2024-08-13 | Outpatient (CLI) | payer MEDICARE, OTHER ==
[~2024-08-13] MED LIST changes: -FLOM0.4C39 PO; +ISOVUE-370 76% 100 ML VIAL ONE; -ISOVUE-370 76% 100ML VIAL ONE; +TAMS-18 PO
== END ==
LOC: M PLAIMG 10:03
PROVIDERS: ATTEND Urology
DX: C64.2 Malignant neoplasm of left kidney, except renal pelvis (principal)
CPT/HCPCS: 74178; Q9967

== ENCOUNTER 2024-09-19 06:08 | Day surgery (SDC) | payer MEDICARE, OTHER ==
[~2024-09-19] VITALS: Ht 172.7 cm; Wt 94.2 kg
[2024-09-19] MEDS: OFLOXACIN 0.3 % (OCUFLOX) OPTH SOL 5ML OD ONE (06:00)
[2024-09-19] MEDS: LIDOCAINE 3.5% 1 ML OPHTH TOPICAL GEL OU ONE (06:00)
[~2024-09-19 06:08] MED LIST changes: +CARV25TA PO; -ISOVUE-370 76% 100 ML VIAL ONE; +PHENYLEPHRINE 10% OPHTH SOL 5ML OD PRN
[2024-09-19] MEDS ORDERED: MIDAZOLAM INJ 2 MG/2 ML VIAL As Ordered ONE (06:19)
[2024-09-19] MEDS: PHENYLEPHRINE 2.5% OPHTH SOL 2ML OD SCH (06:59)
[2024-09-19] MEDS: TROPICAMIDE 1% OPHTH SOLN 15ML OD SCH (06:59)
[2024-09-19] MEDS: CYCLOPENTOLATE 1% OPHTH SOLN 2 ML BTL OD SCH (06:59)
[2024-09-19] MEDS: LIDOCAINE 1% SDV 5 ML VIAL As Ordered ONE (07:54)
[2024-09-19] MEDS: CEFUROXIME 1 MG/0.1 ML INTRACAMERAL INJ As Ordered ONE (07:55)
[2024-09-19] MEDS: BSS IRRIG/VANCO(10MG)/TOBRA(5MG)/EPINEPH(1:1000-0.5CC)500ML BAG-ORONLY As Ordered ONE (07:55)
[2024-09-19 08:12] VITALS: BP 180/88; TEMP 97.4; O2SAT 99
== END 2024-09-19 08:17 | disposition home or self-care (01) ==
LOC: M SDC 06:08
PROVIDERS: ATTEND Ophthalmology
DX: E11.36 Type 2 diabetes mellitus with diabetic cataract (principal); H25.11 Age-related nuclear cataract, right eye; I25.10 Atherosclerotic heart disease of native coronary artery without angina pectoris; I10 Essential (primary) hypertension; E11.40 Type 2 diabetes mellitus with diabetic neuropathy, unspecified; I25.2 Old myocardial infarction; E78.00 Pure hypercholesterolemia, unspecified; Z79.899 Other long term (current) drug therapy; Z79.82 Long term (current) use of aspirin; Z79.84 Long term (current) use of oral hypoglycemic drugs; Z95.1 Presence of aortocoronary bypass graft; Z95.0 Presence of cardiac pacemaker; Z95.5 Presence of coronary angioplasty implant and graft; Z88.8 Allergy status to other drugs, medicaments and biological substances
CPT/HCPCS: 66984; J0697; J2250; J3010; V2632

== ENCOUNTER 2024-11-07 07:12 | Day surgery (SDC) | payer OTHER, MEDICARE ==
[~2024-11-07] VITALS: Ht 172.7 cm; Wt 94.7 kg
[2024-11-07] MEDS: OFLOXACIN 0.3 % (OCUFLOX) OPTH SOL 5ML OS ONE (06:00)
[2024-11-07] MEDS: LIDOCAINE 3.5% 1 ML OPHTH TOPICAL GEL OU ONE (06:00)
[~2024-11-07 07:12] MED LIST changes: -CAPT125TA PO; +CAPT1TAB16 PO; +MIDAZOLAM INJ 2 MG/2 ML VIAL As Ordered ONE; -PHENYLEPHRINE 10% OPHTH SOL 5ML OD PRN; +PHENYLEPHRINE 10% OPHTH SOL 5ML OS PRN
[2024-11-07] MEDS: BSS IRRIG/VANCO(10MG)/TOBRA(5MG)/EPINEPH(1:1000-0.5CC)500ML BAG-ORONLY As Ordered ONE (07:13)
[2024-11-07] MEDS: CYCLOPENTOLATE 1% OPHTH SOLN 2 ML BTL OS SCH (09:19)
[2024-11-07] MEDS: TROPICAMIDE 1% OPHTH SOLN 15ML OS SCH (09:19)
[2024-11-07] MEDS: PHENYLEPHRINE 2.5% OPHTH SOL 2ML OS SCH (09:19)
[2024-11-07] MEDS: INSULIN LISPRO (NovoLOG) PER UNIT SC PRN (10:11)
[2024-11-07] MEDS: CEFUROXIME 1 MG/0.1 ML INTRACAMERAL INJ As Ordered ONE (11:02)
[2024-11-07] MEDS: LIDOCAINE 1% SDV 5 ML VIAL As Ordered ONE (11:02)
[2024-11-07 11:12] VITALS: BP 133/79; TEMP 97.1; O2SAT 99
== END 2024-11-07 11:29 | disposition home or self-care (01) ==
LOC: M SDC 07:12
PROVIDERS: ATTEND Ophthalmology
DX: H25.12 Age-related nuclear cataract, left eye (principal); I25.10 Atherosclerotic heart disease of native coronary artery without angina pectoris; I25.2 Old myocardial infarction; E11.9 Type 2 diabetes mellitus without complications; Z95.0 Presence of cardiac pacemaker; Z85.528 Personal history of other malignant neoplasm of kidney; Z88.8 Allergy status to other drugs, medicaments and biological substances; Z79.899 Other long term (current) drug therapy
CPT/HCPCS: 66984; J0697; J2250; J3010; V2632